=== PATIENT | female | born 2000 | race Caucasian/White ===

== ENCOUNTER 2023-12-31 12:33 | Inpatient (IN) | payer OTHER, SELFPAY ==
[2023-12-31 12:47] VITALS: BP 120/80; PULSE 110; O2SAT 98
--- NOTE | 2023-12-31 12:49 | ED.PSYCH ---
HPI - Psych General Chief Complaint: Psychiatric Symptoms Stated Complaint: SI SECTION 12 Time Seen by Provider: 12/31/23 12:48 Source: patient and EMS Mode of arrival: EMS Limitations: no limitations History of Present Illness HPI Narrative: 23 yo female with history of depression on Prozac, alcohol abuse and dependence, history of suicide attempt in the past with cutting of her neck who presents to the ER via EMS for evaluation of suicidal ideation. She states she has been depressed for the last 5 years with worsening suicidal thoughts. She has thought about running into traffic, cutting her neck, using a belt to hang herself but she has not tried them because she is afraid they will not work all the way. She admits to significant alcohol abuse to cope with her depression. She drinks seltzers and fireball daily. She experiences tremors and anxiety when she doesn't drink. 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 no other drug use. She is in the [employer] and did not seen psychiatric help after her suicide attempt in the past because she did not want to lose her career. She states she can do my job fine but as soon as she gets home she drinks and gets more and more depressed. She does not have a psychiatrist or therapist. No PCP. She is on her Prozac and is almost running out, she had no refills. MD complaint: suicidal ideation and feels depressed Onset (ago): year(s) Duration: getting worse History of same: Yes Relieving factors: none Exacerbating factors: alcohol Context: recent alcohol abuse Associated psychiatric symptoms: depression Associated symptoms: nausea, vomiting and insomnia If self harm: admits thoughts of self harm and has plan Related Data Allergies Allergy/AdvReac Type Severity Reaction Status Date / Time No Known Allergies Allergy Verified 12/31/23 13:16 Review of Systems Review of Systems: Yes all other systems are reviewed and are negative [facility] Social History Social History Alcohol intake: current Alcohol intake frequency: 3 or more drinks per day Alcohol type: beer and hard liquor Smoked in Last 30 Days: No Use of substances other than those prescribed or required for medical reasons: No Patient : No Physical Exam Vital Signs: Vital Signs: Last Vital Signs Temp 98.2 F 12/31/23 13:13 Pulse 81 12/31/23 13:13 Resp 16 12/31/23 13:13 BP 142/85 H 12/31/23 13:13 Pulse Ox 100 12/31/23 13:13 O2 Del Method Room Air 12/31/23 13:13 BMI result Body Mass Index 27.5 Appearance: Alert. Oriented X3. Tearful and yelling out, i want to f*cking kill myself. smells of alcohol. Head: normocephalic, atraumatic. Eyes: Pupils equal, round and reactive to light. ENT: Pharynx normal. No tonsillar swelling or exudate. Neck: Normal inspection. Neck supple. CVS: Normal heart rate and rhythm. Pulses normal. Respiratory: No respiratory distress. Breath sounds normal. Abdomen: Soft and nontender. +BS x4 Skin: Skin warm and dry. Normal skin color. Normal skin turgor. No rashes. Extremities: No lower extremity edema. No joint swelling. Neuro/psych: Oriented X 3. No motor deficit. No sensory deficit. CN II-XII intact. Normal speech and cognition. Under the influence of alcohol. Crying, depressed mood. No AH/VH Course Reevaluation(s) Reevaluation #1: Physician observation started at 14:45. Patient placed in physician observation because patient is awaiting CARE team evaluation for the possible need of inpatient psych admission. At the time observation was started patient's vital signs were stable. Patient is alert and oriented. Neuro exam is non-focal. CV: RRR and lungs are clear. Will continue to monitor. Time: 14:45 Medical Decision Making Medical Decision Making [facility] Narrative: 23 yo female with history of depression, alcohol use disorder, SI in the past presenting with SI and multiple plans. Alcohol level to 257, MCFADDEN negative Patient to be seen by care team for evaluation of suicidal ideation. May require inpatient level of care. Will re-evaluate once clinically sober Differential Diagnosis Differential Diagnoses: The differential diagnosis associated with the presentation includes alcoholism, substance induced mood disorder, acute psychosis, schizophrenia, schizoaffective disorder, PTSD, bipolar disorder, major depression with psychotic features Admission/Observation Consideration of admission/observation: Escalation of care including admission/observation considered Lab Data [facility] Lab Attestation statement: I reviewed the patient's lab results. 12/31/23 13:40 12/31/23 13:40 Labs: Lab Results 12/31/23 Range/Units 13:40 WBC 8.2 (4.8-10.8) X10*3/uL RBC 4.27 (4.20-5.50) X10*6/uL Hgb 14.2 (12.0-16.0) g/dl Hct 40.5 (37.0-47.0) % MCV 94.8 (80.0-98.0) fL MCH 33.3 H (27.0-33.0) pg MCHC 35.1 H (31.0-35.0) g/dl RDW 11.7 (11.0-16.0) % Plt Count 281 (160-400) X10*3/uL MPV 8.7 L (9.4-12.3) fL Immature Gran % (Auto) 0.4 (0.0-0.4) % Neut % (Auto) 68.5 (45-73) % Lymph % (Auto) 26.3 (20-40) % Worth % (Auto) 3.8 (2-11) % Eos % (Auto) 0.4 (0-4) % Baso % (Auto) 0.6 (0-2) % Lymph # (Auto) 2.2 (1.2-4.9) X10*3/uL Worth # (Auto) 0.3 (0.1-1.2) X10*3/uL Eos # (Auto) 0.0 (0.0-0.4) X10*3/uL Baso # (Auto) 0.1 (0.0-0.2) X10*3/uL Abs Immat Gran (auto) 0.03 (0.00-0.03) X10*3/uL Absolute Neuts (auto) 5.7 (2.0-8.3) x10*3/uL Absolute Nucleated RBC 0.000 (0.0-0.012) X10*3/uL Nucleated RBC % (auto) 0.0 (0.0-0.2) /100WBC Sodium 145 (135-145) mmol/L Potassium 3.6 (3.3-5.1) mmol/L Chloride 107 (96-108) mmol/L Carbon Dioxide 26 (22-29) mmol/L Anion Gap 16 (12-20) BUN 9 (9-16) mg/dL Creatinine 0.77 (0.5-1.4) mg/dL Estim Creat Clear Calc 109.0 Estimated GFR > 60 Random Glucose 89 (60-115) mg/dL Calcium 9.0 (8.4-10.2) mg/dL Magnesium 2.3 (1.6-2.6) mg/dL Total Bilirubin 0.3 (0.0-1.0) mg/dL Direct Bilirubin 0.1 (0.0-0.5) mg/dL AST 20 (5-31) U/L ALT 13 (0-31) U/L Alkaline Phosphatase 67 (39-117) U/L Total Protein 7.4 (6.5-8.0) g/dL Albumin 4.5 (3.5-5.0) g/dL Urine Color Yellow Urine Appearance Clear Urine pH 8.0 (5.0-9.0) Ur Specific Jamieson <= 1.005 (1.005-1.025) Urine Protein Negative (Neg-Trace) mg/dL Urine Glucose (UA) Negative (Negative) mg/dL Urine Ketones Negative (Negative) mg/dL Urine Blood Negative (Negative) Urine Nitrite Negative (Negative) Ur Leukocyte Esterase Negative (Negative) Urine Test NEGATIVE (NEGATIVE) Urine Opiates Screen Not Detected (Not Detect) Urine Fentanyl Screen Not Detected (Not Detect) Ur Barbiturates Screen Not Detected (Not Detect) Ur Phencyclidine Scrn Not Detected (Not Detect) Ur Amphetamines Screen Not Detected (Not Detect) U Benzodiazepines Scrn Not Detected (Not Detect) Urine Cocaine Screen Not Detected (Not Detect) U Marijuana (THC) Screen Not Detected (Not Detect) Ethyl Alcohol 257 mg/dL Independent Historian Clinical information obtained from an independent historian. History obtained from or confirmed by: EMS Prescription Management I considered prescription management with: Other (anti psychotic ) Chronic Conditions Patient?s care impacted by: Other (depression, alcohol use disorder) Social Determinants Patient?s care significantly limited by Social Determinants of Health including: Problems related to primary support group Discharge Plan Discharge Clinical Impression: Suicidal ideation, Alcohol use disorder Patient Disposition: Still a Patient Interventions: Winifrede-Suicide Risk Severity Scale Last Done: 12/31/23 13:17
[2023-12-31 13:13] VITALS: BP 142/85; PULSE 81; RESP 16; TEMP 36.8; O2SAT 100; BMI 27.5
[2023-12-31 13:44] LABS: MANUAL DIFF FLAG NO
[2023-12-31 13:46] LABS: Basophils Absolute Auto 0.1 X10*3/uL (0.0-0.2); Basophils Percent Auto 0.6 % (0-2); Eosinophils Percent Auto 0.4 % (0-4); Hematocrit 40.5 % (37.0-47.0); Hemoglobin 14.2 g/dl (12.0-16.0); Imm Gran Abs Auto 0.03 X10*3/uL (0.00-0.03); Imm Gran Pct Auto 0.4 % (0.0-0.4); Lymphocytes Absolute Auto 2.2 X10*3/uL (1.2-4.9); Lymphocytes Percent Auto 26.3 % (20-40); Mean Corpuscular HGB Conc 35.1 g/dl (31.0-35.0); Mean Corpuscular Hemoglobin 33.3 pg (27.0-33.0); Mean Corpuscular Volume 94.8 fL (80.0-98.0); Mean Platelet Volume 8.7 fL (9.4-12.3); Monocytes Absolute Auto 0.3 X10*3/uL (0.1-1.2); Monocytes Percent Auto 3.8 % (2-11); Neutrophils Absolute Auto 5.7 x10*3/uL (2.0-8.3); Neutrophils Percent Auto 68.5 % (45-73); Platelet Count 281 X10*3/uL (160-400); Red Blood Count 4.27 X10*6/uL (4.20-5.50); Red Cell Distribution Width 11.7 % (11.0-16.0); White Blood Count 8.2 X10*3/uL (4.8-10.8)
[2023-12-31 13:50] LABS: Appearance Urine Clear; Color Urine Yellow; Glucose Urine UA Negative (Negative); Leukocyte Esterase Urine Negative (Negative); Nitrite Urine Negative (Negative); Specific Gravity - Urine <= 1.005 (1.005-1.025); Urine Blood Negative (Negative); Urine Ketones Negative (Negative); Urine Protein Negative (Neg-Trace)
[2023-12-31 13:53] LABS: Amphetamine Screen Urine Not Detected (Not Detect); Barbiturates, Urine Not Detected (Not Detect); Benzodiazepines Screen Urine Not Detected (Not Detect); Cannabinoid Screen Urine Not Detected (Not Detect); Cocaine Screen Urine Not Detected (Not Detect); Fentanyl, urine Not Detected (Not Detect); Opiate Screen Urine Not Detected (Not Detect); Phencyclidine Screen Urine Not Detected (Not Detect)
[2023-12-31 13:54] LABS: UPreg QC Valid YES; Urine Pregnancy NEGATIVE (NEGATIVE)
[2023-12-31 14:02] LABS: Alanine Aminotransferase 13 U/L (0-31); Albumin Level 4.5 g/dL (3.5-5.0); Alkaline Phosphatase 67 U/L (39-117); Anion Gap 16 (12-20); Aspartate Amino Transferase 20 U/L (5-31); Bilirubin Direct 0.1 mg/dL (0.0-0.5); Bilirubin Total 0.3 mg/dL (0.0-1.0); Blood Urea Nitrogen 9 mg/dL (9-16); Carbon Dioxide 26 mmol/L (22-29); Chloride 107 mmol/L (96-108); Estimated Glomerular Filt Rate > 60; Ethanol 257 mg/dL; Glucose Random 89 mg/dL (60-115); Magnesium 2.3 mg/dL (1.6-2.6); Potassium 3.6 mmol/L (3.3-5.1); Sodium 145 mmol/L (135-145); Total Protein 7.4 g/dL (6.5-8.0)
[2023-12-31] MEDS: Nicotine 14 MG PATCH.TD24 TRANSDERMA (16:23)
[2023-12-31] MEDS: LORazepam 1 MG TABLET PO (16:23)
[2023-12-31] MEDS: FLUoxetine HCl 20 MG CAPSULE PO (20:36)
[2023-12-31 20:43] VITALS: BP 112/61; PULSE 78; RESP 16; TEMP 37; O2SAT 96
[2024-01-01 05:57] VITALS: BP 124/83; PULSE 57; RESP 15; TEMP 36.8
--- NOTE | 2024-01-01 06:05 | MHC.EDTECH ---
pATIENT SLEPT ALL NIGHT ,PATIENT UP AT 0600 ,VITALS TAKEN AND PATIENT USE THE BATHROOM .
[2024-01-01] MEDS: LORazepam 1 MG TABLET 2 MG PO (06:09)
--- NOTE | 2024-01-01 06:14 | PC.NURSE ---
Patient slept through the night, no distress observed/reported, medication compliant, patient was assessed by care team, disposition is section 12 inpatient bed search. CIWA at 0607 was 9, Ativan 2 mg PO administered/pending effect, no behavior issues, will continue to monitor
[2024-01-01 08:57] LABS: COVID-19 Test Negative (Negative); IDNOW Serial# 152EDE1D
[2024-01-01] MEDS: Nicotine 14 MG PATCH.TD24 TRANSDERMA (08:59)
--- NOTE | 2024-01-01 14:35 | PC.NURSE ---
Report given to accepting unit
[2024-01-01 14:50] VITALS: BP 127/73; PULSE 73; RESP 16; TEMP 37; O2SAT 99
[2024-01-01 16:27] VITALS: BMI 28.7
--- NOTE | 2024-01-01 16:52 | PC.NURSE ---
Pt received the flu vaccine in November 2023.
--- NOTE | 2024-01-01 17:11 | PC.NURSE ---
Ifeoma is a 23 year old female admitted to [facility] at 1445 from the pod on a CV for treatment of unspecified bipolar d/o and alcohol use d/o. Pt was drinking the day prior to admission and woke up and began to continue to drink. Pt then called 911 with SI with a plan to hang herself, cut her neck, or run into traffic. Pt reported I knew I needed help and called crisis. Pt BAL was 257 upon arrival. She is a&o x4 and was cooperative and pleasant during assessment. Pt was cooperative with skin check. Pt reports feeling depressed I'm ready to get help I need medication and a psychiatrist. Pt denies SI and HI at this time. Pt denies AH or VH. No overt psychosis or expressed delusions observed. Pt thought process is linear. Pt reports trouble falling asleep. She reported having recent stressors, [place] country in the last 6 months and she had a divorce and lost her father in the Pt tox screen was negative. Pt has a hx of prior suicide attempts. In 2018 she tried to cut her throat and 2020 tried to hang her self but couldn't figure how to logistically do it. She reports drink beer and fireball 4 or more times a week. Pt reports no medial issues. Covid was negative. Pt is currently on 15 minute checks for safety. Pt is on a CIWA Q4. She last scored a 9,0, and 2. Pt signed a 3-day on 01/01/24.
[2024-01-01 20:00] VITALS: BP 112/67; PULSE 63; RESP 16; TEMP 36.9; O2SAT 98
[2024-01-01] MEDS: hydrOXYzine HCL 25 MG TABLET PO (20:27)
[2024-01-01] MEDS: traZODone HCL 50 MG TABLET PO (20:27)
[2024-01-01] MEDS: FLUoxetine HCl 20 MG CAPSULE PO (20:27)
[2024-01-02 06:00] VITALS: BP 115/68; PULSE 64; RESP 14; TEMP 36.5; O2SAT 99
[2024-01-02] MEDS: Nicotine 21 MG PATCH.TD24 TRANSDERMA (08:26)
[2024-01-02] MEDS: Multivitamin TABLET 1 TAB PO (08:27)
[2024-01-02] MEDS: Folic Acid 1 MG TABLET PO (08:27)
[2024-01-02] MEDS: Thiamine HCL 100 MG TABLET PO (08:27)
[2024-01-02 09:06] LABS: Alanine Aminotransferase 10 U/L (0-31); Albumin Level 4.1 g/dL (3.5-5.0); Alkaline Phosphatase 63 U/L (39-117); Anion Gap 11 (12-20); Aspartate Amino Transferase 15 U/L (5-31); Bilirubin Total 0.5 mg/dL (0.0-1.0); Blood Urea Nitrogen 11 mg/dL (9-16); Calcium 9.3 mg/dL (8.4-10.2); Carbon Dioxide 26 mmol/L (22-29); Chloride 106 mmol/L (96-108); Cholesterol 180 mg/dL (<200); Creatinine Clr Calc Pharmacy 104.6; Estimated Glomerular Filt Rate > 60; Glucose Fasting 94 mg/dL (60-99); HDL Cholesterol 91 mg/dL (>40); LDL Cholesterol Calculated 72 mg/dL (<100); Potassium 3.6 mmol/L (3.3-5.1); Sodium 139 mmol/L (135-145); Total Protein 6.9 g/dL (6.5-8.0); Triglycerides 88 mg/dL (<150)
--- NOTE | 2024-01-02 09:42 | P.HPPS_ITS ---
HPI Date of Service: 01/02/24 Chief Complaint: crisis Sources of Information: patient interviewed, chart reviewed and crisis/core team assessment reviewed HPI Subjective Notes: Hill Warning and Conditional Voluntary Narrative: Patient is a 23 year old female with hx of MDD, PTSD and alcohol use d/o who was brought to ER via EMS on [address] by police d/t suicidal ideation secondary to increased depression and alcohol consumption. Per crisis report, pt was brought in by police on [place] 12[address] d/t suicidal ideation with plan to hand herself, cut her neck or run into traffic. Pt reports drinking daily and had a BAL of 257 on arrival to ER;denies any other substance use. Pt has hx of two self reported suicide attempts; one in 2019 and one in 2020. This is patient's first inpatient psychiatric hospitalization. Pt does not currently have any outpatient psychiatric providers. Pt moved to [place] six months ago for her job; she was taking Prozac while living in [place] but ran out and skipped doses. During admission assessment, pt presents calm and cooperative. Pt reports feeling stressed ; pt stated, I think I hit a breaking point. I was drinking for the past three days. I'm not happy with myself. I feel like I could be better. Sometimes I think it would be better to but I don't want to ; then I get irritated at myself for thinking that way. I only get suicidal when I drink . Pt reports she doesn't know why I drink so much ; she reports stress from her job and not being able to sustain a relationship . Pt stated, I want to stay in the , I just want to find a way to cope with my job . 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 Pt reports hx of taking Prozac with positive effect; pt stated, I used to take Prozac and I was feeling better on it but then I stopped because I was feeling good . Pt was educated regarding medication compliance. Pt denies SI/HI/VH/AH. Past Psychiatric History: Pt reports hx of suicide attempts in 2018 cut throat superficially with broken bottle during argument with ex- and in 2020, tried to hang herself after argument with ex. Hx of psychiatrist and therapist in [place]. 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 Moved to [place] six months ago for her job after living in [place]. Family live in [facility]. Substance History: drink alcohol daily. denies any other substance use. Trauma History: yes Diagnostics Vital Signs (24Hr): Vital Signs - 24 hr 01/01/24 14:50 01/01/24 20:00 01/02/24 06:00 Temperature 98.6 F 98.5 F 97.7 F Pulse Rate 73 63 64 Respiratory Rate 16 16 14 Blood Pressure 127/73 112/67 115/68 Pulse Oximetry 99 98 99 Oxygen Delivery Method Room Air Room Air Room Air BMI result Body Mass Index 28.7 Labs 12/31/23 13:40 01/02/24 08:20 Labs: Laboratory Results - last 48 hr 12/31/23 01/01/24 01/02/24 13:40 08:23 08:20 WBC 8.2 RBC 4.27 Hgb 14.2 Hct 40.5 MCV 94.8 MCH 33.3 H MCHC 35.1 H RDW 11.7 Plt Count 281 MPV 8.7 L Immature Gran % (Auto) 0.4 Neut % (Auto) 68.5 Lymph % (Auto) 26.3 Bowman % (Auto) 3.8 Eos % (Auto) 0.4 Baso % (Auto) 0.6 Lymph # (Auto) 2.2 Bowman # (Auto) 0.3 Eos # (Auto) 0.0 Baso # (Auto) 0.1 Abs Immat Gran (auto) 0.03 Absolute Neuts (auto) 5.7 Absolute Nucleated RBC 0.000 Nucleated RBC % (auto) 0.0 Sodium 145 139 Potassium 3.6 3.6 Chloride 107 106 Carbon Dioxide 26 26 Anion Gap 16 11 L BUN 9 11 Creatinine 0.77 0.82 Estim Creat Clear Calc 109.0 104.6 Estimated GFR > 60 > 60 Random Glucose 89 Fasting Glucose 94 Calcium 9.0 9.3 Magnesium 2.3 Total Bilirubin 0.3 0.5 Direct Bilirubin 0.1 AST 20 15 ALT 13 10 Alkaline Phosphatase 67 63 Total Protein 7.4 6.9 Albumin 4.5 4.1 Triglycerides 88 Cholesterol 180 LDL Cholesterol, Calc 72 HDL Cholesterol 91 Urine Color Yellow Urine Appearance Clear Urine pH 8.0 Ur Specific Loa <= 1.005 Urine Protein Negative Urine Glucose (UA) Negative Urine Ketones Negative Urine Blood Negative Urine Nitrite Negative Ur Leukocyte Esterase Negative Urine Test NEGATIVE Urine Opiates Screen Not Detected Urine Fentanyl Screen Not Detected Ur Barbiturates Screen Not Detected Ur Phencyclidine Scrn Not Detected Ur Amphetamines Screen Not Detected U Benzodiazepines Scrn Not Detected Urine Cocaine Screen Not Detected U Marijuana (THC) Screen Not Detected Ethyl Alcohol 257 COVID-19 (STEVIE) Negative COVID-19 Clin Com See Note Meds/Allergies Meds Home Medications ?Medication ?Instructions ?Recorded ?Confirmed ?Type fluoxetine 20 mg capsule (Prozac) 20 mg PO BEDTIME 12/31/23 12/31/23 History Allergies Allergies Allergy/AdvReac Type Severity Reaction Status Date / Time No Known Allergies Allergy Verified 12/31/23 13:16 Mental Status Exam Mental Status Exam Narrative: Pt is alert and oriented; behavior is cooperative, friendly and calm; dressed in casual attire; mood is described as stressed ; eye contact appropriate; Speech is normal rate, volume and prosody and not pressured; thought process is organized and goal directed; Thought content is on tx; otherwise pertinent to relevant topics and without any delusional content, paranoid ideations or grandiosity; denies SI/HI/VH/AH. Assessment & Plan Assessment & Plan (1) MDD (major depressive disorder), recurrent episode, severe: Status: Acute Code(s): F33.2 - Major depressive disorder, recurrent severe without psychotic features (2) PTSD (post-traumatic stress disorder): Status: Acute Code(s): F43.10 - Post-traumatic stress disorder, unspecified (3) Alcohol use disorder: Status: Acute Code(s): F10.90 - Alcohol use, unspecified, uncomplicated Plan Patient is a 23 year old female with hx of MDD, PTSD and alcohol use d/o who was brought to ER via EMS on [address] 12[address] by police d/t suicidal ideation secondary to increased depression and alcohol consumption. Plan: CV 15 minute safety checks CIWA Start: Prozac 20mg PO daily Referral to outpatient therapist and prescriber Consult to addiction medicine for assistant track and field coach and possibly starting on Neltrexone. Patient educated on: diagnosis, medication risk/benefits, substance abuse and therapeutic strategies Informed Consent: understands Reason for continued inpatient stay Substantial Risk for: med/psych decompensation Statement Statement: I have reviewed the history and physical and performed a pertinent examination on my patient. No changes have occurred unless specified. If the History and Physical was not performed prior to admission, the Hospitalist's service will be consulted for completing the admission physical. Time Spent With Patient Time: Total time managing care of this patient today _60___ minutes.
--- NOTE | 2024-01-02 14:41 | MHC.RECOVRN ---
AUDIT-C Brief Intervention Pt had positive screen for unhealthy alcohol use on admission, subsequently met with t/w to discuss alcohol use and recovery supports/options. Pt voices concern regarding alcohol use and is aware that drinking at unhealthy levels is known to increase risk of alcohol related health problems. Pt reports drinking anything until I get drunk. Pt reports she has been drinking daily for a few months. Pt reports use has increased, prior to a few months ago pt used alcohol on the weekends. Pt states I would have a bad day and say I need a beer or have some type of stress and say I need a beer. Pt does report alcohol use before and after work. 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 Pt unsure if there is a family history of alcohol use, however, suspects mother has AUD. Pt expresses how alcohol use has impacted health, including negative impact on mental health. Discussed risk reduction strategies including drinking below the recommended limit. Provided pt with written resources including information on inpatient and outpatient treatment, LIZANDRO, harm reduction, and recovery coaching. Pt interested in naltrexone, would like to initiate and follow up with the [facility]. Pt provided with t/w contact information if questions or concerns arise. Denies other questions or concerns at this time. Discussed with Judith Squires APRN. Pt has CCC appt on 01/07 at 1PM.
[2024-01-02 19:25] VITALS: BP 118/65; PULSE 64; RESP 16; TEMP 37; O2SAT 98
[2024-01-02] MEDS: traZODone HCL 50 MG TABLET PO (20:15)
[2024-01-02] MEDS: FLUoxetine HCl 20 MG CAPSULE PO (20:15)
[2024-01-02] MEDS: hydrOXYzine HCL 25 MG TABLET PO (20:15)
[2024-01-03 07:00] VITALS: BMI 28.8
[2024-01-03 08:00] VITALS: BP 109/55; PULSE 58; RESP 18; TEMP 36.6; O2SAT 97
--- NOTE | 2024-01-03 08:02 | HO.PSYCHPN ---
Subjective Subjective Date of Service: 01/03/24 Reason For Visit: crisis Subjective Notes: 3 Day Interim History: Reviewed with Dr. Davison. social with peers, attending groups. Pt reports feeling good ; pt stated, I'm feeling a lot better being here and talking to people. I feel like I'm getting help . Pt reports she plans on following up with outpatient providrs. pt denies SI/HI/VH/AH. Pt to be discharged tomorrow on 3 day notice. Medication Compliance: Yes Side effects from medications: No Attending Groups: Yes Review of Systems Constitutional: Reports as per HPI Eyes: Reports as per HPI Reports as per HPI Cardiovascular: Reports as per HPI Respiratory: Reports as per HPI Gastrointestinal: Reports as per HPI Musculoskeletal: Reports as per HPI Skin/Breast: Reports as per HPI Reports as per HPI Psychiatric: Reports as per HPI Endocrine: Reports as per HPI Hematologic/Lymphatic: Reports as per HPI Allergic/Immunologic: Reports as per HPI Mental Status Exam Mental Status Exam Narrative: Pt is alert and oriented; behavior is cooperative, friendly and calm; dressed in casual attire; mood is described as good ; eye contact appropriate; Speech is normal rate, volume and prosody and not pressured; thought process is organized and goal directed; Thought content is on tx; otherwise pertinent to relevant topics and without any delusional content, paranoid ideations or grandiosity; denies SI/HI/VH/AH. Diagnostics Vital Signs (24Hr): Vital Signs - 24 hr 01/02/24 19:25 Temperature 98.6 F Pulse Rate 64 Respiratory Rate 16 Blood Pressure 118/65 Pulse Oximetry 98 Oxygen Delivery Method Room Air BMI result Body Mass Index 28.7 Labs 12/31/23 13:40 01/02/24 08:20 Labs: Laboratory Results - last 48 hr 01/01/24 01/02/24 08:23 08:20 Sodium 139 Potassium 3.6 Chloride 106 Carbon Dioxide 26 Anion Gap 11 L BUN 11 Creatinine 0.82 Estim Creat Clear Calc 104.6 Estimated GFR > 60 Fasting Glucose 94 Calcium 9.3 Total Bilirubin 0.5 AST 15 ALT 10 Alkaline Phosphatase 63 Total Protein 6.9 Albumin 4.1 Triglycerides 88 Cholesterol 180 LDL Cholesterol, Calc 72 HDL Cholesterol 91 COVID-19 (STEVIE) Negative COVID-19 Clin Com See Note Medications Medications Current Medications Acetaminophen (Acetaminophen 325 Mg Tablet) 650 mg PO Q6H PRN PRN Reason: Headache/Pain Mild Scale (1-3) Al Hydroxide/Mg Hydroxide (Magnesium Hydrox/Alum Hydrox 30 Ml Oral.Susp) 30 ml PO Q6H PRN PRN Reason: Heartburn/Nausea Fluoxetine HCl (Fluoxetine Hcl 20 Mg Capsule) 20 mg PO BEDTIME STERLING Last Admin: 01/02/24 20:15 Dose: 20 mg Folic Acid (Folic Acid 1 Mg Tablet) 1 mg PO DAILY [facility] Last Admin: 01/02/24 08:27 Dose: 1 mg Hydroxyzine HCl (Hydroxyzine Hcl 25 Mg Tablet) 25 mg PO Q6H PRN PRN Reason: Anxiety Last Admin: 01/02/24 20:15 Dose: 25 mg Lorazepam (Lorazepam 1 Mg Tablet) 1 mg PO Q4H PRN PRN Reason: CIWA 6-12 Lorazepam (Lorazepam 1 Mg Tablet) 2 mg PO Q4H PRN PRN Reason: CIWA 13 and above Magnesium Hydroxide (Milk Of Magnesia 30 Ml Oral.Susp) 30 ml PO DAILY PRN PRN Reason: Constipation Multivitamins/Vitamin C (Multivitamin Tablet) 1 tab PO DAILY [facility] Last Admin: 01/02/24 08:27 Dose: 1 tab Nicotine (Nicotine 21 Mg Patch.Td24) 21 mg TRANSDERMA DAILY [facility] Last Admin: 01/02/24 08:26 Dose: 21 mg Nicotine Polacrilex (Nicotine Polacrilex 2 Mg Gum) 4 mg BUCCAL Q2H PRN PRN Reason: Nicotine Cravings Thiamine HCl (Thiamine Hcl 100 Mg Tablet) 100 mg PO DAILY [facility] Last Admin: 01/02/24 08:27 Dose: 100 mg Trazodone HCl (Trazodone Hcl 50 Mg Tablet) 50 mg PO BEDTIME MRX1 PRN PRN Reason: Insomnia Last Admin: 01/02/24 20:15 Dose: 50 mg Allergies Allergies Allergy/AdvReac Type Severity Reaction Status Date / Time No Known Allergies Allergy Verified 12/31/23 13:16 Assessment & Plan Assessment & Plan (1) MDD (major depressive disorder), recurrent episode, severe: Status: Acute Code(s): F33.2 - Major depressive disorder, recurrent severe without psychotic features (2) PTSD (post-traumatic stress disorder): Status: Acute Code(s): F43.10 - Post-traumatic stress disorder, unspecified (3) Alcohol use disorder: Status: Acute Code(s): F10.90 - Alcohol use, unspecified, uncomplicated Plan Patient is a 23 year old female with hx of MDD, PTSD and alcohol use d/o who was brought to ER via EMS on [address] by police d/t suicidal ideation secondary to increased depression and alcohol consumption. Plan: CV 15 minute safety checks CIWA Start: Prozac 20mg PO daily Referral to outpatient therapist and prescriber Consult to addiction medicine for girls tennis coach and possibly starting on Neltrexone. 01/02: social with peers, attending groups. Pt reports feeling good ; pt stated, I'm feeling a lot better being here and talking to people. I feel like I'm getting help . Pt reports she plans on following up with outpatient providrs. pt denies SI/HI/VH/AH. Pt to be discharged tomorrow on 3 day notice. Pt plans to follow up at [facility] when discharged regarding resources. Patient educated on: diagnosis, medication risk/benefits, substance abuse and therapeutic strategies Informed Consent: understands Reason for continued inpatient stay Substantial Risk for: stable for discharge Time Spent With Patient Time: Total time managing care of this patient today _20___ minutes.
[2024-01-03] MEDS: Thiamine HCL 100 MG TABLET PO (08:56)
[2024-01-03] MEDS: Multivitamin TABLET 1 TAB PO (08:56)
[2024-01-03] MEDS: Folic Acid 1 MG TABLET PO (08:56)
[2024-01-03] MEDS: Naltrexone HCl 50 MG TABLET 25 MG PO (08:56)
[2024-01-03] MEDS: Nicotine 21 MG PATCH.TD24 TRANSDERMA (08:56)
[2024-01-03 19:15] VITALS: BP 144/82; PULSE 73; RESP 16; TEMP 37; O2SAT 98
[2024-01-03] MEDS: traZODone HCL 50 MG TABLET PO (21:26)
[2024-01-03] MEDS: hydrOXYzine HCL 25 MG TABLET PO (21:26)
[2024-01-03] MEDS: FLUoxetine HCl 20 MG CAPSULE PO (21:26)
[2024-01-04 07:26] VITALS: BP 117/67; PULSE 57; RESP 14; TEMP 36.6; O2SAT 99
[2024-01-04] MEDS: Naltrexone HCl 50 MG TABLET 25 MG PO (08:10)
[2024-01-04] MEDS: Folic Acid 1 MG TABLET PO (08:10)
[2024-01-04] MEDS: Multivitamin TABLET 1 TAB PO (08:10)
[2024-01-04] MEDS: Thiamine HCL 100 MG TABLET PO (08:10)
--- NOTE | 2024-01-04 09:06 | PM.PSYDC ---
DS: Providers Provider Date of Service: 01/04/24 Date of admission: 01/01/24 13:32 Date of discharge: 01/04/24 Primary care physician: Jonh Physician Admitting clinician: Rachel Agarwal Attending physician on admission: Wojciech Davison Consults: 01/01/24 15:38 Addiction Medicine Stat Consulting Provider: Addiction Covering Reason for consultation: Pt drinks alcohol 4x weekly Attending physician on discharge: Wojciech Davison Discharging clinician: Rachel Agarwal DS: Diagnosis Discharge Diagnosis (1) MDD (major depressive disorder), recurrent episode, severe: Status: Acute (2) PTSD (post-traumatic stress disorder): Status: Acute (3) Alcohol use disorder: Status: Acute DS: Medications Discharge Medications Home Medications: Previous Rx's ?Medication ?Instructions ?Recorded fluoxetine 20 mg capsule 20 mg PO BEDTIME 30 days #30 caps 01/03/24 hydroxyzine HCl 25 mg tablet 25 mg PO BID PRN Anxiety 30 days 01/03/24 #60 tabs naltrexone 50 mg tablet 25 mg (1/2 x 50 mg) PO DAILY 30 01/03/24 days #15 tabs Mental Status Exam Mental Status Exam Narrative: Pt is alert and oriented; behavior is cooperative, friendly and calm; dressed in casual attire; mood is described as good ; eye contact appropriate; Speech is normal rate, volume and prosody and not pressured; thought process is organized and goal directed; Thought content is on tx; otherwise pertinent to relevant topics and without any delusional content, paranoid ideations or grandiosity; denies SI/HI/VH/AH. Data Data Completed and Pending Completed studies during hospitalization [Text1]: 12/31/23 01/01/24 01/02/24 13:40 08:23 08:20 WBC 8.2 RBC 4.27 Hgb 14.2 Hct 40.5 MCV 94.8 MCH 33.3 H MCHC 35.1 H RDW 11.7 Plt Count 281 MPV 8.7 L Immature Gran % (Auto) 0.4 Neut % (Auto) 68.5 Lymph % (Auto) 26.3 Ralls % (Auto) 3.8 Eos % (Auto) 0.4 Baso % (Auto) 0.6 Lymph # (Auto) 2.2 Ralls # (Auto) 0.3 Eos # (Auto) 0.0 Baso # (Auto) 0.1 Abs Immat Gran (auto) 0.03 Absolute Neuts (auto) 5.7 Absolute Nucleated RBC 0.000 Nucleated RBC % (auto) 0.0 Sodium 145 139 Potassium 3.6 3.6 Chloride 107 106 Carbon Dioxide 26 26 Anion Gap 16 11 L BUN 9 11 Creatinine 0.77 0.82 Estim Creat Clear Calc 109.0 104.6 Estimated GFR > 60 > 60 Random Glucose 89 Fasting Glucose 94 Calcium 9.0 9.3 Magnesium 2.3 Total Bilirubin 0.3 0.5 Direct Bilirubin 0.1 AST 20 15 ALT 13 10 Alkaline Phosphatase 67 63 Total Protein 7.4 6.9 Albumin 4.5 4.1 Triglycerides 88 Cholesterol 180 LDL Cholesterol, Calc 72 HDL Cholesterol 91 Urine Color Yellow Urine Appearance Clear Urine pH 8.0 Ur Specific [place] <= 1.005 Urine Protein Negative Urine Glucose (UA) Negative Urine Ketones Negative Urine Blood Negative Urine Nitrite Negative Ur Leukocyte Esterase Negative Urine Test NEGATIVE Urine Opiates Screen Not Detected Urine Fentanyl Screen Not Detected Ur Barbiturates Screen Not Detected Ur Phencyclidine Scrn Not Detected Ur Amphetamines Screen Not Detected U Benzodiazepines Scrn Not Detected Urine Cocaine Screen Not Detected U Marijuana (THC) Screen Not Detected Ethyl Alcohol 257 COVID-19 (STEVIE) Negative COVID-19 Clin Com See Note DS: Summary Hospital Course Hospital Course: Patient is a 23 year old female with hx of MDD, PTSD and alcohol use d/o who was brought to ER via [place] [address] [place] police d/t suicidal ideation secondary to increased depression and alcohol consumption. Per crisis report, pt was brought in [place] police [place] [address] d/t suicidal ideation with plan to hand herself, cut her neck or run into traffic. Pt reports drinking daily and had a BAL of 257 on arrival to ER;denies any other substance use. Pt has hx of two self reported suicide attempts; one in 2019 and one in 2020. This is patient's first inpatient psychiatric hospitalization. Pt does not currently have any outpatient psychiatric providers. Pt moved to [place] six months ago for her job; she was taking Prozac while living in [place] but ran out and skipped doses. During admission assessment, pt presents calm and cooperative. Pt reports feeling stressed ; pt stated, I think I hit a breaking point. I was drinking for the past three days. I'm not happy with myself. I feel like I could be better. Sometimes I think it would be better to but I don't want to ; then I get irritated at myself for thinking that way. I only get suicidal when I drink . Pt reports she doesn't know why I drink so much ; she reports stress from her job and not being able to sustain a relationship . Pt stated, I want to stay in the , I just want to find a way to cope with my job . Pt reports she has previously been able to remain sober for nine months; she reports interest in speaking with addiction medication and obtaining a wrestling coach and possibly starting on Naltrexone. Pt reports hx of taking Prozac with positive effect; pt stated, I used to take Prozac and I was feeling better on it but then I stopped because I was feeling good . Pt was educated regarding medication compliance. Pt denies SI/HI/VH/AH. During hospital course, CV 15 minute safety checks CIWA Start: Prozac 20mg PO daily Referral to outpatient therapist and prescriber Consult to addiction medicine for wrestling coach and possibly starting on Neltrexone. social with peers, attending groups. Pt reports feeling good ; pt stated, I'm feeling a lot better being here and talking to people. I feel like I'm getting help . Pt reports she plans on following up with outpatient providrs. pt denies SI/HI/VH/AH. Pt to be discharged on 3 day notice. Pt plans to follow up at [facility] when discharged regarding resources. Pt reports feeling good and ready for discharge ; pt denies SI/HI/VH/AH. Time spent discussing smoking cessation with patient: 3 to 10 minutes Status at Discharge Cognitive/behavioral status at discharge: Patient was interviewed prior to discharge and found to be fully oriented and without SI or HI. Patient has insight and demonstrates good judgment in terms of wanting to pursue treatment. Patient has a safety plan that includes presenting to the closest ER or calling 911 if feeling unsafe. Functional status at discharge: independent ambulation Overall status at discharge: patient is back to baseline Time Spent with Patient Time attestation: Total time managing care of this patient today _30___ minutes. Time spent: Less than 30 minutes Discharge Plan Discharge Anticipated Discharge Date/Time: 01/04/24 10:45 Patient Disposition: Home, Self-Care Discharge Diagnosis: MDD, PTSD, Alcohol use d/o Referrals: [facility] ([facility]) [Other] - 01/08/24 1:00 pm (IN OFFICE APPOINTMENT) Therapy & Psychiatry [Other] - 1 Week (*Please present to the clinic Sunday through Sunday during the hours of 10am and 12p as a walk in to obtain outpatient mental health providers*) Therapy & Psychiatry [Other] - 1 Week (*[facility] to [facility] ) Magalie [facility]barra (Insurance) [Other] - 1 Week (*Please call your insurance company and they will guide you through the process of obtaining outpatient mental health treatment. ) [facility] [Provider Group] - 1 Week Physician,None [Primary Care Provider] - 1 Week Discharge Medications: New fluoxetine 20 mg Capsule 20 mg PO BEDTIME 30 Days Qty: 30 0RF naltrexone 50 mg Tablet 25 mg PO DAILY 30 Days Qty: 15 0RF hydroxyzine HCl 25 mg Tablet 25 mg PO BID PRN (Reason: Anxiety) 30 Days Qty: 60 0RF Discontinued fluoxetine [Prozac] 20 mg capsule 20 mg PO BEDTIME Discharge Orders: Discharge Order (Routine); Ordered 01/04/24 Ordered By: Rachel Agarwal Diet: Regular diet Activity on Discharge: As tolerated Stand Alone Forms: Patient Portal Discharge page, Community Support Print Language: Venezuelan Care Plan Goals: Maintain mood and safe behaviors Take medications as prescribed Continue to pursue sobriety Practice coping skills Continue with outpatient providers and reach out to them as needed Health Concerns: Mood stability and behaviors Sobriety Plan of Treatment: Follow up with your PCP, psychiatric provider and other outpatient providers regarding above concerns Take medications as prescribed Assessment: Patient was interviewed prior to discharge and found to be fully oriented and without SI or HI. Patient has insight and demonstrates good judgment in terms of wanting to pursue treatment. Patient has a safety plan that includes presenting to the closest ER or calling 911 if feeling unsafe. Discharge Date/Time: 01/04/24 10:50
== END 2024-01-04 10:50 | disposition home or self-care (01) | DRG 885 ==
LOC: HO.ED 15:32 → HO.PADLT16 01-01 13:34
PROVIDERS: Emergency Medicine; Physician Assistant; Admitting Provider Registered Nurse; Emergency Provider Emergency Medicine; Responsible Provider Registered Nurse; Visit Provider Psychiatry & Neurology Psychiatry
DX: F33.2 Major depressive disorder, recurrent severe without psychotic features (principal); R45.851 Suicidal ideations; F17.210 Nicotine dependence, cigarettes, uncomplicated; F43.10 Post-traumatic stress disorder, unspecified; F10.20 Alcohol dependence, uncomplicated; Z71.6 Tobacco abuse counseling; Y90.8 Blood alcohol level of 240 mg/100 ml or more; Z91.51 Personal history of suicidal behavior; Z20.822 Contact with and (suspected) exposure to COVID-19; Z79.899 Other long term (current) drug therapy
CPT/HCPCS: 36415; 80048; 80053; 80061; 80076; 80307; 81003; 81025; 83735; 85025; 87635; 99284; S9485

== ENCOUNTER → 2024-01-01 13:32 | Outpatient (BNV) | payer OTHER, SELFPAY | PROVIDERS: Admitting Provider Registered Nurse; Emergency Provider Emergency Medicine; Responsible Provider Registered Nurse; Visit Provider Registered Nurse | DX: F33.2 Major depressive disorder, recurrent severe without psychotic features (principal); F43.11 Post-traumatic stress disorder, acute; F10.90 Alcohol use, unspecified, uncomplicated | CPT/HCPCS: 90792; 99231; 99238 ==

== ENCOUNTER 2024-01-14 12:52 | Outpatient (AMB) | payer OTHER, SELFPAY ==
[2024-01-14 13:47] VITALS: BP 110/60; PULSE 80; O2SAT 98
--- NOTE | 2024-01-14 13:47 | MHC.AM.SUB ---
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 [employer] She is stably housed with stable transportation She moved to [place] from [place] 6 [place] ago She states she chose to move out to [place] to be closer to her family FAmily lives in [place], sister lives out in [place] She feels as though her family and coworkers are a good support system for her She reports she vapes nicotine, has vaped x 7 yrs daily Denies any other substance use hx Alcohol use increased when she moved to [place] She reports drinking in binge-like patterns Prior to hospitalization she had been bingeing x 3-4 days She reports drinking both beer and hard liquor, would buy a 12 pack of beer, and a sleeve of fireball and that would last her about 2 days No hx of seeking substance use tx She has no providers in [place] yet Had a therapist and psych prescriber out in [place] Recent hospitalization was firstg psych hospitalization [facility] Takes 20mg prozac daily, 50mg naltrexone, and 25mg hydroxyzine BID Reports since starting the meds she has been having vivid dreams Her tx goal is to drink socially and to have control over her alcohol intake Does not feels she had a problem with alcohol prior to moving to [facility] Social History Household Members: None Housing: Apartment Do you presently have visiting nurse or other home services: No Alcohol intake: current Alcohol intake frequency: 3 or more drinks per day Alcohol type: beer and hard liquor Patient Tobacco Use Status: Current everyday Tobacco user e-Cigarette/Vaping Use: Currently Using Second Hand Smoke Exposure: No service: Yes (Active [facility]) Sexual orientation: Straight/Heterosexual Review of Systems Const Reports as per HPI Physical Exam Const General: cooperative and no acute distress Resp Effort & Inspection: normal respiratory effort and able to speak in complete sentences Psych Appearance: grossly normal Mental Status: mental status grossly normal Speech and movement: Normal speech and movement present Affect: normal affect Attitude: cooperative Thought process: Normal thought process present Assessment & Plan Assessment & Plan (1) Alcohol use disorder: Code(s): F10.90 - Alcohol use, unspecified, uncomplicated Category: Medical Plan: -Continue naltrexone. Discussed with pt increasing daily dose to 50mg if she feels the 25mg is sub-therapeutic -Provided her with recovery collector information, she is to think about if she would like a referral, presently is unsure. -Follow up 3 weeks Orders: Referrals Counseling Referral F10.90 - Alcohol use, unspecified, uncomplicated, F33.2 - Major depressive disorder, recurrent severe without psychotic features, F43.10 - Post-traumatic stress disorder, unspecified Medications: Changed From naltrexone 25 mg (1/2 x 50 mg) PO DAILY 30 days 15 tabs 0RF To naltrexone 50 mg PO DAILY 30 tabs 0RF 30 days
== END 2024-01-14 13:35 | disposition home or self-care (01) ==
PROVIDERS: Visit Provider Nurse Practitioner Family
DX: F10.90 Alcohol use, unspecified, uncomplicated (principal)
CPT/HCPCS: 99204

== ENCOUNTER → 2024-01-14 12:52 | Outpatient (BNVA) | payer OTHER, SELFPAY | PROVIDERS: Visit Provider Nurse Practitioner Family | DX: F10.90 Alcohol use, unspecified, uncomplicated (principal); F33.2 Major depressive disorder, recurrent severe without psychotic features; F43.10 Post-traumatic stress disorder, unspecified | CPT/HCPCS: 99202 ==

== ENCOUNTER 2024-02-18 09:01 | Outpatient (AMB) | payer OTHER, SELFPAY ==
--- NOTE | 2024-02-18 09:06 | A.OFFPC_ITS ---
Vital Signs 02/18/24 09:07 Height 5 ft 2 in Weight 172 lb BMI 31.5 BP 112/74 Blood Pressure Location Lt brachial Position Sitting Intake Visit Reasons: NPV/ requesting PHY Rock Crusher Required: No Accompanied by: Self / Same As Patient Allergies No Known Allergies Allergy (Verified 02/18/24 09:17) Medication List - Last Reconciled 02/18/24 by Breanna Raymond MD fluoxetine 20 mg PO BEDTIME 30 days hydroxyzine HCl 25 mg PO BID PRN 30 days naltrexone 50 mg PO DAILY 30 days Tobacco use date assessed: 02/18/24 Dental Screening Dental Screen Date: 02/18/24 Did you have a dental visit in the last 12 months?: Yes Did you have a dental problem in the last 6 months where you did not have access to dental care?: No Was dental information given to patient?: Patient has dentist HPI HPI Comments History of Present Illness Details This is a 23-year-old female with mild major depression that comes for her physical exam as a new patient. She was hospitalized at psychiatric unit due to severe depression, PTSD and alcohol use disorder. Doing well on fluoxetine. Has gain weight and I will decrease fluoxetine to 10 mg once a day for 1 week and then discontinue it. Patient will restart bupropion after discontinuing fluoxetine. Alcohol use disorder stable with naltrexone. Last Pap smear was 2023 and had colposcopy after abnormal Pap smear which colposcopy was normal. No chest pain or shortness on breath. [facility] Medical History (Updated 02/18/24 @ 09:21 by Breanna Raymond MD) Suicidal ideation MDD (major depressive disorder), recurrent episode, severe Surgical History No pertinent past surgical history Family History Mother Hypertension Father Hypertension Diabetes Social History Household Members: None Housing: Apartment Do you presently have visiting nurse or other home services: No Alcohol intake: former Patient Tobacco Use Status: Never used Tobacco e-Cigarette/Vaping Use: Currently Using Second Hand Smoke Exposure: No service: Yes (Active [employer]) Current occupational status: employed Current occupational exposures/hazards: No Sexual orientation: Straight/Heterosexual Cognitive needs: No Hearing needs: No Vision needs: No Questionnaire PHQ-9 Over the last 2 weeks, how often have you been bothered by any of the following problems? 1. Little interest or pleasure in doing things: not at all 2. Feeling down, depressed, or hopeless: several days 3. Trouble falling or staying asleep, or sleeping too much: not at all 4. Feeling tired or having little energy: not at all 5. Poor appetite or overeating: not at all 6. Feeling bad about yourself - or that you are a failure or have let yourself or your family down: not at all 7. Trouble concentrating on things, such as reading the newspaper or watching television: not at all 8. Moving or speaking so slowly that other people could have noticed. Or the opposite - being so fidgety or restless that you have been moving around a lot more than usual: not at all 9. Thoughts that you would be better off or of hurting yourself in some way: not at all Total score: 1 Depression Screening Interpretation: Positive Depression Screening Follow-up: Existing condition, In treatment and Follow-up Visit Requested Depression Screening Done: Yes 96115 - PHQ-9 Billing: Yes Source: Developed by Drs. Iker Soliman, Zulema Christina, Harvey Sorto and colleagues, with an educational angela from [employer]. Thrive Questionnaire Date Thrive assessed: 02/18/24 I am a: Patient What is your living situation today?: I have a steady place to live Within the past 12 months, did the food you bought not last and you didn't have the money to get more?: Never true Within the past 12 months, did you worry whether your food would run out before you got money to buy more?: Never true Do you have trouble paying for medicines?: No Do you have trouble getting transportation to medical appointments?: No Do you have trouble paying your heating and electricity bill?: No Do you have trouble taking care of your child, family member or friend?: No Do you have trouble with day-to-day activities such as bathing, preparing meals, shopping, managing finances, etc.?: No Are you currently unemployed and looking for a job?: No Are you interested in more education?: No Please select the resources that you would like help with: None Currently or been in a relationship where the following occur: no concerns reported THRIVE Score: 0 AUDIT C Alcohol Use Questionnaire (AUDIT-C) 1. How often do you have a drink containing alcohol?: Never Total Score: 0 Score Reviewed/Action Taken: No LANDON-7 AMB Questionnaire LANDON-7 Date LANDON - 7 assessed: 02/18/24 Feeling nervous, anxious, or on edge: 0 = Not at all Not being able to stop or control worryin = Not at all Worrying too much about different things: 0 = Not at all Trouble relaxin = Not at all Being so restless that it is hard to sit still: 0 = Not at all Becoming easily annoyed or irritable: 0 = Not at all Feeling afraid as if something awful might happen: 0 = Not at all Total LANDON-7 score (0-4 normal; 5-9 mild; 10-14 moderate; 15-21 severe): 0 Source: Developed by Drs. Iker Soliman, Zulema Christina, Harvey Sorto and colleagues, with an educational angela from [employer]. LANDON-7 Assessment Billing LANDON-7 Assessment Tool: LANDON-7 Assessment 65768 Review of Systems Const All systems reviewed & are unremarkable except as noted in HPI and below Card Denies chest pain at rest, Denies chest pain with activity, Denies edema, Denies irregular heart rhythm, Denies claudication, Denies dyspnea, Denies dyspnea on exertion, Denies orthopnea, Denies paroxysmal nocturnal dyspnea and Denies slow heart rate Resp Denies cough, Denies dyspnea and Denies dyspnea on exertion Neuro Denies behavioral changes, Denies confusion and Denies lack of coordination Psych Denies behavioral changes and Denies confusion Physical exam (Primary Care) Vital Signs: Last Vital Signs BP 112/74 02/18/24 09:07 BMI result Body Mass Index 31.5 Tobacco/Smoking Status: Tobacco use Status Tobacco use date assessed 02/18/24 02/18/24 09:12 Patient Tobacco Use Status Never used Tobacco 02/18/24 09:12 Tobacco use type 02/18/24 09:12 e-Cigarette/Vaping Use Currently Using 02/18/24 09:12 PHQ-9: PHQ-9 Score PHQ-9: Total score 0 02/18/24 09:31 Depression Screening Interpretation: Positive Depression Screening Follow-up: Existing condition, In treatment and Follow-up Visit Requested Thrive Assessment: Date of Thrive Assessment Date Thrive assessed 02/18/24 02/18/24 09:12 Currently or been in a relationship where the following occur: no concerns reported Const General: No confusion Orientation/consciousness: patient oriented x3 and No confusion HENMT Head: Yes normal to inspection, Yes normocephalic and Yes atraumatic Ears: external ears normal Eyes General: appearance normal, both eyes and all related structures Eyelids: Yes eyelids normal Conjunctivae: conjunctivae normal Neck Neck: Yes normal visual inspection and Yes supple Resp Effort & Inspection: normal respiratory effort Auscultation: clear to auscultation bilaterally Cardio Jugular venous distension: no JVD Rate: regular rate Rhythm: regular rhythm Heart sounds: S1 normal heart sound present and S2 normal heart sound present GI Inspection: Yes normal to inspection Palpation (GI): Soft to palpation and nontender Auscultation: normal bowel sounds Skin General skin exam: no rashes or lesions noted Neuro General: patient oriented x3, no focal motor deficits and No confusion Extrem General: Yes full ROM Psych Appearance: grossly normal Assessment and Plan Assessment & Plan (1) Physical exam: Code(s): Z00.00 - Encounter for general adult medical examination without abnormal findings Plan: Repeat in a year. (2) Mild major depression: Code(s): F32.0 - Major depressive disorder, single episode, mild Plan: Decrease fluoxetine from 20 mg to 10 mg for 1 week and start bupropion. Medications: New fluoxetine 10 mg PO DAILY 7 caps 0RF 7 days bupropion HCl XL 150 mg PO QAM 90 tabs 1RF 90 days F32.0 - Major depressive disorder, single episode, mild Refilled hydroxyzine HCl 25 mg PO BID PRN 60 tabs 0RF Anxiety 30 days naltrexone 50 mg PO DAILY 30 tabs 0RF 30 days Discontinued fluoxetine Discontinued Reason: Patient Completed Course 20 mg PO BEDTIME 30 days 30 caps 0RF Coding Level of Care Code New Pt Prev Care 18-39yr([id number] Diagnoses Physical exam Z00.00 Mild major depression F32.0 Additional Codes LANDNO-7 Assessment Billing - LANDON-7 Assessment Tool: LANDON-7 Assessment 40715 ([id number]) Time Spent (min) 33
[2024-02-18 09:07] VITALS: BP 112/74; BMI 31.5
== END 2024-02-18 09:43 | disposition home or self-care (01) ==
PROVIDERS: Visit Provider Internal Medicine
DX: Z00.00 Encounter for general adult medical examination without abnormal findings (principal); F32.0 Major depressive disorder, single episode, mild; F10.90 Alcohol use, unspecified, uncomplicated
CPT/HCPCS: 96127; 99385

== ENCOUNTER 2024-02-18 13:31 | Outpatient (AMB) | payer OTHER, SELFPAY ==
[2024-02-18 13:45] VITALS: BP 120/80; PULSE 87; RESP 14; O2SAT 98
--- NOTE | 2024-02-18 13:45 | A.OFFVISCC_ITS ---
Vital Signs 02/18/24 13:45 BP 120/80 Blood Pressure Location Rt brachial Position Sitting Respiration 14 Pulse 87 Pulse Source Pulse Oximeter Pulse Oximetry (%) 98 Intake Visit Reasons: MAT visit Allergies No Known Allergies Allergy (Verified 02/18/24 09:17) HPI HPI MAT visit: Details: Patient presents for AUD treatment and follow up States she has been doing well, has been taking the naltrexone and has been finding it to be effective Has only been drinking socially, and when she drinks has been limiting herself to one alcoholic beverage She was seen today by PCP who is cross tapering her from prozac to wellbutrin She has been feeling better physically, states things are looking up No concerns today HPI Comments Details: Patient presents for MAT visit [facility] Medical History (Updated 02/18/24 @ 09:21 by Breanna Raymond MD) Suicidal ideation MDD (major depressive disorder), recurrent episode, severe Surgical History No pertinent past surgical history Family History Mother Hypertension Father Hypertension Diabetes Social History Household Members: None Housing: Apartment Do you presently have visiting nurse or other home services: No Alcohol intake: former Patient Tobacco Use Status: Never used Tobacco e-Cigarette/Vaping Use: Currently Using Second Hand Smoke Exposure: No service: Yes ([employer]) Current occupational status: employed Current occupational exposures/hazards: No Sexual orientation: Straight/Heterosexual Cognitive needs: No Hearing needs: No Vision needs: No Review of Systems Const Reports as per HPI Physical Exam Vital Signs: Last Vital Signs Pulse 87 02/18/24 13:45 Resp 14 02/18/24 13:45 BP 120/80 02/18/24 13:45 Pulse Ox 98 02/18/24 13:45 Const General: cooperative and no acute distress Resp Effort & Inspection: normal respiratory effort and able to speak in complete sentences Psych Appearance: grossly normal Mental Status: mental status grossly normal Speech and movement: Normal speech and movement present Affect: normal affect Attitude: cooperative Thought process: Normal thought process present Assessment & Plan Assessment & Plan (1) Alcohol use disorder: Code(s): F10.90 - Alcohol use, unspecified, uncomplicated Category: Medical Plan: -Continue naltrexone -Follow up 1 month, sooner as needed
== END 2024-02-18 14:04 | disposition home or self-care (01) ==
PROVIDERS: Visit Provider Nurse Practitioner Family
DX: F10.90 Alcohol use, unspecified, uncomplicated (principal)
CPT/HCPCS: 99213

== ENCOUNTER → 2024-02-18 13:31 | Outpatient (BNVA) | payer OTHER, SELFPAY | PROVIDERS: Visit Provider Nurse Practitioner Family | DX: F10.20 Alcohol dependence, uncomplicated (principal); Z79.899 Other long term (current) drug therapy | CPT/HCPCS: 99212 ==

== ENCOUNTER 2024-05-26 13:31 | Outpatient (AMB) | payer OTHER, SELFPAY ==
--- NOTE | 2024-05-26 13:44 | MHC.AM.SUB ---
Intake Visit Reasons: MAT Office Allergies No Known Allergies Allergy (Verified 02/18/24 09:17) HPI HPI MAT Office: Details: Patient presents for follow up Last appt in February ran out of Hydroxyzine 2 weeks ago Wellbutrin 150mg daily started by PCP Reports drinking has decreased--3x/week and about 4-5 high noons each time somewhat guarded when discussing her alcohol use Tearful at times Discussed strategies to plan for what she would like her night to look like--including how she wants to feel the next morning Discussed therapy --due to her insurance ([employer]) finding providers is challenging. [facility] Medical History (Updated 05/21/24 @ 20:05 by Breanna Raymond MD) Suicidal ideation MDD (major depressive disorder), recurrent episode, severe Surgical History No pertinent past surgical history Family History Mother Hypertension Father Hypertension Diabetes Social History Household Members: None Housing: Apartment Do you presently have visiting nurse or other home services: No Alcohol intake: former Patient Tobacco Use Status: Never used Tobacco e-Cigarette/Vaping Use: Currently Using Second Hand Smoke Exposure: No service: Yes ([employer]) Current occupational status: employed Current occupational exposures/hazards: No Sexual orientation: Straight/Heterosexual Cognitive needs: No Hearing needs: No Vision needs: No Review of Systems Const Reports as per HPI and Reports difficulty sleeping (without hydroxyzine ) Physical Exam Const General: cooperative, healthy appearing, anxious and well groomed Nutritional Appearance: average body habitus Orientation/consciousness: patient oriented x3 Limitations: no limitations Neuro General: patient oriented x3 Assessment & Plan Assessment & Plan (1) Alcohol use disorder: Code(s): F10.90 - Alcohol use, unspecified, uncomplicated Category: Medical Plan: encouraged to consider restarting naltrexone refilled hydroxyzine provided with printout of providers who take tri care in this area follow up in office 6 weeks Medications: Refilled hydroxyzine HCl 25 mg PO BID 30 days PRN 60 tabs 3RF Anxiety naltrexone 50 mg PO DAILY 30 days 30 tabs 3RF Discontinued fluoxetine Discontinued Reason: Patient Completed Course 10 mg PO DAILY 7 days 7 caps 0RF
== END 2024-05-26 14:12 | disposition home or self-care (01) ==
PROVIDERS: Visit Provider Nurse Practitioner Psychiatric/Mental Health
DX: F10.90 Alcohol use, unspecified, uncomplicated (principal)
CPT/HCPCS: 99214

== ENCOUNTER → 2024-05-26 13:31 | Outpatient (BNVA) | payer OTHER, SELFPAY | PROVIDERS: Visit Provider Nurse Practitioner Psychiatric/Mental Health | DX: F10.90 Alcohol use, unspecified, uncomplicated (principal) | CPT/HCPCS: 99212 ==

== ENCOUNTER 2025-02-23 09:28 | Outpatient (AMB) | payer OTHER, SELFPAY ==
--- NOTE | 2025-02-23 09:32 | MHC.PC.OV ---
Vital Signs 02/23/25 09:36 Height 5 ft 2 in Weight 171 lb BMI 31.3 BP 110/80 Blood Pressure Location Lt brachial Position Sitting Intake Visit Reasons: Annual exam Intake Note: Patient here for an annual physical exam [employer] Required: No Accompanied by: Self / Same As Patient Allergies No Known Allergies Allergy (Verified 02/23/25 09:46) Medication List - Last Reconciled 02/23/25 by Breanna Raymond MD bupropion HCl XL 150 mg PO QAM 90 days hydroxyzine HCl 25 mg PO BID PRN 30 days naltrexone 50 mg PO DAILY 30 days Tobacco use date assessed: 02/23/25 Dental Screening Dental Screen Date: 02/23/25 Did you have a dental visit in the last 12 months?: Yes Did you have a dental problem in the last 6 months where you did not have access to dental care?: No Was dental information given to patient?: Patient has dentist HPI HPI Comments History of Present Illness Details The patient is a 24-year-old female presenting for a comprehensive physical examination. Notably, she seeks a Tdap booster given an unspecified vaccination history. She receives treatment for mild depressive disorder with Bupropion and Hydroxyzine, both of which contribute to drowsiness. The patient manages Naltrexone for fluctuating alcohol use, noting significant adverse effects when combined with alcohol. In 2023 she dealt with an abnormal Pap smear but achieved normalcy post-Colposcopy. 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 Back issues, manifested as stress-related knots, and menstrual changes have also emerged. She manages familial medical predispositions to diabetes and hypertension. Additionally, past Borderline Personality Disorder diagnosis prompts interest in therapy, citing previous positive counseling outcomes but encounters referral barriers with current insurance. - Administered Tdap vaccine during the visit. - Pap smear evaluated in 2023, followed by a normal Colposcopy. - Planning for Nexplanon replacement by September 2024. - Encouragement to continue low-calorie beverage choices to manage weight. - Referral to [facility] [employer], psychiatry, and counseling discussed. [facility] Medical History (Updated 02/23/25 @ 10:04 by Breanna Raymond MD) Suicidal ideation MDD (major depressive disorder), recurrent episode, severe Surgical History No pertinent past surgical history Family History Mother Hypertension Father Hypertension Diabetes Social History Household Members: None Housing: Apartment Do you presently have visiting nurse or other home services: No Alcohol intake: former Patient Tobacco Use Status: Never used Tobacco e-Cigarette/Vaping Use: Currently Using Second Hand Smoke Exposure: No service: Yes ([employer]) Current occupational status: employed Current occupational exposures/hazards: No Sexual orientation: Straight/Heterosexual Cognitive needs: No Hearing needs: No Vision needs: No Questionnaire PHQ-9 Over the last 2 weeks, how often have you been bothered by any of the following problems? 1. Little interest or pleasure in doing things: several days 2. Feeling down, depressed, or hopeless: not at all 3. Trouble falling or staying asleep, or sleeping too much: not at all 4. Feeling tired or having little energy: several days 5. Poor appetite or overeating: several days 6. Feeling bad about yourself - or that you are a failure or have let yourself or your family down: several days 7. Trouble concentrating on things, such as reading the newspaper or watching television: several days 8. Moving or speaking so slowly that other people could have noticed. Or the opposite - being so fidgety or restless that you have been moving around a lot more than usual: several days 9. Thoughts that you would be better off or of hurting yourself in some way: not at all Total score: 6 Depression Screening Interpretation: Positive Depression Screening Follow-up: Existing condition, In treatment, Community Mental Health Worker F/U and Follow-up Visit Requested Depression Screening Done: Yes 15585 - PHQ-9 Billing: Yes Source: Developed by Drs. Iker Soliman, Zulema Christina, Harvey Sorto and colleagues, with an educational angela from [employer]. Thrive Questionnaire Date Thrive assessed: 02/16/25 I am a: Patient What is your living situation today?: I have a steady place to live Within the past 12 months, did the food you bought not last and you didn't have the money to get more?: Never true Within the past 12 months, did you worry whether your food would run out before you got money to buy more?: Never true Do you have trouble paying for medicines?: No Do you have trouble getting transportation to medical appointments?: No Do you have trouble paying your heating and electricity bill?: No Do you have trouble taking care of your child, family member or friend?: No Do you have trouble with day-to-day activities such as bathing, preparing meals, shopping, managing finances, etc.?: No Are you currently unemployed and looking for a job?: No Are you interested in more education?: No Please select the resources that you would like help with: None Currently or been in a relationship where the following occur: No concerns reported THRIVE Score: 0 AUDIT C Alcohol Use Questionnaire (AUDIT-C) 1. How often do you have a drink containing alcohol?: Monthly or less 2. How many drinks containing alcohol do you have on a typical day when you are drinking?: 1 or 2 3. How often do you have six or more drinks on one occasion?: Never Total Score: 1 Score Reviewed/Action Taken: No LANDON-7 AMB Questionnaire LANDON-7 Date LANDON - 7 assessed: 02/23/25 Feeling nervous, anxious, or on edge: 1 = Several days Not being able to stop or control worryin = Several days Worrying too much about different things: 1 = Several days Trouble relaxin = Not at all Being so restless that it is hard to sit still: 0 = Not at all Becoming easily annoyed or irritable: 1 = Several days Feeling afraid as if something awful might happen: 0 = Not at all Total LANDON-7 score (0-4 normal; 5-9 mild; 10-14 moderate; 15-21 severe): 4 Source: Developed by Drs. Iker Soliman, Zulema Christina, Harvey Sorto and colleagues, with an educational angela from [employer]. LANDON-7 Assessment Billing LANDON-7 Assessment Tool: LANDON-7 Assessment 88513 Review of Systems Const All systems reviewed & are unremarkable except as noted in HPI and below Card Denies chest pain at rest, Denies chest pain with activity, Denies edema, Denies irregular heart rhythm, Denies claudication, Denies dyspnea, Denies dyspnea on exertion, Denies orthopnea, Denies paroxysmal nocturnal dyspnea and Denies slow heart rate Resp Denies cough, Denies dyspnea and Denies dyspnea on exertion GI Denies abdominal pain, Denies change in bowel habits, Denies excessive flatus, Denies nausea and Denies vomiting Denies urinary incontinence, Denies urinary hesitancy and Denies urinary urgency Musc Denies abnormal gait, Denies atrophy, Denies deformity and Denies limited range of motion Skin/Breast Denies bleeding lesions, Denies changing lesions and Denies rash Neuro Denies abnormal gait and Denies lack of coordination Physical exam (Primary Care) Vital Signs: Last Vital Signs BP 110/80 02/23/25 09:36 BMI result Body Mass Index 31.3 Tobacco/Smoking Status: Tobacco use Status Tobacco use date assessed 02/23/25 02/23/25 09:36 Patient Tobacco Use Status Never used Tobacco 02/23/25 09:36 Tobacco use type 02/18/24 09:39 e-Cigarette/Vaping Use Currently Using 02/23/25 09:36 PHQ-9: PHQ-9 Score PHQ-9: Total score 6 02/23/25 09:51 Depression Screening Interpretation: Positive Depression Screening Follow-up: Existing condition, In treatment, Community Mental Health Worker F/U and Follow-up Visit Requested Thrive Assessment: Date of Thrive Assessment Date Thrive assessed 02/16/25 02/23/25 09:36 Currently or been in a relationship where the following occur: No concerns reported [facility] Head: Yes normal to inspection, Yes normocephalic and Yes atraumatic Ears: external ears normal Eyes General: appearance normal, both eyes and all related structures Eyelids: Yes eyelids normal Conjunctivae: conjunctivae normal Neck Neck: Yes normal visual inspection and Yes supple Resp Effort & Inspection: normal respiratory effort Auscultation: clear to auscultation bilaterally Cardio Jugular venous distension: no JVD Rate: regular rate Rhythm: regular rhythm Heart sounds: S1 normal heart sound present and S2 normal heart sound present GI Inspection: Yes normal to inspection Palpation (GI): Soft to palpation and nontender Auscultation: normal bowel sounds Skin General skin exam: no rashes or lesions noted Neuro General: no focal motor deficits Extrem General: Yes full ROM Psych Appearance: grossly normal Immunizations Boostrix Tdap 2.5 Lf unit-8 mcg-5 Lf/0.5 mL intramuscular syringe Performing Provider: Breanna Raymond MD Performing Location: [facility] Administered by: CATRACHITA Cardoso on 02/23/25 10:04 Dose Route Admin Location Dispensed Lot Number Expiration Date NDC General Pediatrician 0.5 mL IM Right Deltoid 0.5 mL [id number] 05/16/27 51027-375-00 Cube Route VIS Given Date VIS Provided VIS Publication Date 02/23/25 Single Vaccine 24 Eligibility Eligibility Date Funding Source Not [facility] Eligible 02/23/25 Private Coding Level of Care Code Est Pt Level 3 (61658) Est Pt Prev Care 18-39y(20974) Diagnoses Physical exam Z00.00 Mild major depression F32.0 Irregular menses N92.6 ADD (attention deficit disorder) F98.8 Additional Codes PHQ-9 - 76983 - PHQ-9 Billing: Yes ([id number]) LANDON-7 Assessment Billing - LANDON-7 Assessment Tool: LANDON-7 Assessment 06519 ([id number]) Time Spent (min) 33 Assessment & Plan Assessment & Plan (1) Physical exam: Code(s): Z00.00 - Encounter for general adult medical examination without abnormal findings Category: Medical (2) Mild major depression: Code(s): F32.0 - Major depressive disorder, single episode, mild Category: Medical (3) Irregular menses: Code(s): N92.6 - Irregular menstruation, unspecified Category: Medical (4) ADD (attention deficit disorder): Code(s): F98.8 - Other specified behavioral and emotional disorders with onset usually occurring in childhood and adolescence Category: Medical Plan The patient had a Tdap vaccine administered today, addressing her uncertain tetanus immunization status. Her depressive disorder will continue to be managed with Bupropion, while addressing the potential drowsiness from Hydroxyzine. Naltrexone is advised to continue with a cautious approach to alcohol. Annual screening procedures were normal, and a plan for Nexplanon replacement in 2024 is discussed given recent menstrual irregularities. Referrals to [employer] [employer], psychiatry, and counseling have been initiated in light of menstrual concerns and past Borderline Personality Disorder. Medication concerns, specifically related to attention, have been deliberated, emphasizing adverse potentialities of amphetamines. The patient has been guided to continue following low-calorie beverage choices while exploring stress management strategies to tackle lifestyle-related weight gain. Patient was informed and verbally consented to the use of an ambient scribe for clinic note documentation during this visit. I discussed the importance of receiving the Tdap vaccine given the patient's uncertainty about her last booster, ensuring she remains current with immunizations. We reviewed the effectiveness of her current depressive disorder regimen. I advised the continued cautious use of Naltrexone, particularly regarding alcohol due to adverse effects integrating alcohol use. Screening test status was reviewed, encouraging the timeline for Nexplanon change given the irregular menstrual events. Plans for specialists including [employer] [employer], psychiatry, and counseling referrals were set for further evaluation of menstrual irregularities and past personality disorder diagnosis, respectively. Additionally, I addressed concerns about the use of Adderall, discussing cardiovascular risks and seeking alternatives for attention issues. Nutritional advice was provided to maintain lower-calorie consumption to manage weight, focusing on potential dietary and lifestyle alterations to resolve the patient's reported issues. Orders: Orders Comprehensive [place]. Panel Fast Today Z00.00 - Encounter for general adult medical examination without abnormal findings Lipid Panel Today Z00.00 - Encounter for general adult medical examination without abnormal findings Referrals [facility] [employer] Referral N92.6 - Irregular menstruation, unspecified Psychiatry Outpatient Consultation Service F98.8 - Other specified behavioral and emotional disorders with onset usually occurring in childhood and adolescence Counseling Referral F32.0 - Major depressive disorder, single episode, mild, F43.10 - Post-traumatic stress disorder, unspecified Patient Instructions: - Received Tdap vaccine today, no further tetanus booster needed for 10 years. - Continue with Bupropion medication; be aware of drowsiness from Hydroxyzine. - Avoid alcohol while taking Naltrexone to prevent side effects. - Expect [facility] [employer], psychiatry, and counseling referrals to discuss menstrual health and mental wellness. - Monitor and manage stress-related weight gain; opt for low-calorie beverages and explore strategies to reduce stress. - Follow-up with referral appointments as scheduled. - Contact us if symptoms change or worsen.
[2025-02-23 09:36] VITALS: BP 110/80; BMI 31.3
--- OUTSIDE RECORDS SUMMARY | 2025-02-23 10:02 | XMS_ITS | Continuity of Care Document ---
Author Name [facility] Organization [facility] Care Team Providers Care [place] Worker Name Role Phone [facility] Unavailable Unavailable Problems Combined list of problems from Department of [facility] and [facility] facilities. It does not include entries that were removed or entered in error. 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 Medication Details Route Status Patient Instructions Prescription Expires Prescription Number Last Dispense Date Ordering Provider Order Date Order Qty Source BUPROPION XL (bupropion HCl), 150 MG, TAB ER 24H, ORAL, CIP[employer] 500 ea. BOTTLE Active [id number] 4 2023 90 Pharmac y Data Transac tion Service Facilit y FLUCONAZOLE (fluconazol e), 150 MG, TABLET, ORAL, [facility]YDUS [facility]ARMACE[facility], 12 ea. BLIST PACK Active [id number] 4 2023 1 Pharmac y Data Transac tion Service Facilit y FLUOXETINE HCL (fluoxetine HCl), 10 MG, CAPSULE, ORAL, [facility], 1000 ea. BOTTLE Active [id number] 4 2023 7 Pharmac y Data Transac tion Service Facilit y FLUOXETINE HCL (fluoxetine HCl), 20 MG, CAPSULE, ORAL, TIME-CAP [facility]S, 1000 ea. BOTTLE Active [id number] 4 2023 30 Pharmac y Data Transac tion Service Facilit y HYDROXYZINE HCL (hydroxyzin e HCl), 25 MG, TABLET, ORAL, [facility], 500 ea. BOTTLE Active [id number] 4 2023 60 Pharmac y Data Transac tion Service Facilit y HYDROXYZINE HCL (hydroxyzin e HCl), 25 MG, TABLET, ORAL, [facility], 500 ea. BOTTLE Active [id number] 4 2023 60 Pharmac y Data Transac tion Service Facilit y NALTREXONE HCL (NALTREXONE HCL), 50 MG, TABLET, ORAL, [facility], 30 ea. BOTTLE Active [id number] 2023 30 Pharmac y Data Transac tion Service Facilit y NALTREXONE HCL (NALTREXONE HCL), 50 MG, TABLET, ORAL, [facility], 30 ea. BOTTLE Active [id number] 4 2023 30 Pharmac y Data Transac tion Service Facilit y NALTREXONE HCL (NALTREXONE HCL), 50 MG, TABLET, ORAL, [facility], 30 ea. BOTTLE Active [id number] 4 2023 15 Pharmac y Data Transac tion Service Facilit y Nitrofurant oin ([facility]) 100 CAPSULE in 1 BOTTLE Active [id number] 4 2023 14 Pharmac y Data Transac tion Service Facilit y PHENAZOPYRI DINE HCL (phenazopyr idine HCl), 100 MG, TABLET, ORAL, [facility], 100 ea. BOTTLE Active [id number] 4 2023 6 Pharmac y Data Transac tion Service Facilit y Allergies, Adverse Reactions, Alerts Combined list of allergies from Department of Defense and Veterans Affairs facilities. It does not include entries that were removed or entered in error. Substance Category Reaction Severity Reaction type Status Date Reported Comments Source No Known Allergies Drug allergy (disorder) active 11/29/2022 DoD Immunizations Combined list of available immunizations from the Department of Defense and Veterans Affairs facilities. 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 Comments Source influenza virus vaccine, inactivated 2023 VIRGIE NEWMANSBANKYashira Shoul kar, left (delt oid) [id number] 150 [email or web address], [employer] complet ed influenza virus vaccine, inactivat ed 12/26/23 Given 0035C-N [facility] influenza virus vaccine, inactivated 2022 FRANKIEINESARMI ENTOZOSA Shoul kar, left (delt oid) [id number] 158 [employer], A [employer] complet ed influenza virus vaccine, inactivat ed 10/09/22 Given 0232C-N [facility] [employer] influenza, injectable, quadrivalent, preservative free 2020 AZAD, () Not Given influenza , injectabl e, quadrival ent, preservat jamison free DoD influenza, injectable, quadrivalent- pf 2020 JERMAINESARMI ENTOZOSA 150 complet ed Result Comment: Route: Unknown Manufactu rer: OTH (KAY) 0232C-N [facility] l COVID Vaccine Pfizer 2020 KYLERMLENZ Shoul kar, right (delt oid) [id number] PFIZER complet ed COVID Vaccine Pfizer 01/05/21 Given 0029C-N [facility] COVID Vaccine Pfizer 2020 ARIANAMMCRIMM ON Shoul kar, left (delt oid) [id number] P[employer] complet ed COVID Vaccine Pfizer 12/15/20 Given 0029C-N [facility] influenza, injectable, quadrivalent, contains preservative 1 2019 MALENA VILLAGRAN [id number] 158 [employer] (SEQ) complet ed influenza , injectabl e, quadrival ent, contains preservat jamison DoD Influenza, injectable, quadrivalent, preservative free 0 2019 [id number] 699 150 [employer] (SEQ) complet ed Influenza , injectabl e, quadrival ent, preservat jamison free DoD influenza, injectable, quadrivalent- pf 2018 [id number] 988 150 [employer] complet ed influenza , injectabl e, quadrival ent-pf 07/24/19 Given Ambulat ory Pharmac y influenza, injectable, quadrivalent 2018 [id number] 158 Unknown complet ed influenza , injectabl e, quadrival ent 07/24/19 Given Ambulat ory Pharmac y influenza, injectable, quadrivalent 2018 zzLef t Arm [id number] 988 158 Unknown complet ed influenza , injectabl e, quadrival ent 07/24/19 Given Ambulat ory Pharmac y influenza, injectable, quadrivalent- pf 2018 [id number] 988 150 [employer] complet ed influenza , injectabl e, quadrival ent-pf 07/24/19 Given Ambulat ory Pharmac y Influenza, injectable, quadrivalent, preservative free 0 2018 [id number] 988 150 [employer] (SEQ) complet ed Influenza , injectabl e, quadrival ent, preservat jamison free DoD influenza, injectable, quadrivalent, contains preservative 1 2018 SAMMY FERMIN V [id number] 988 158 Other (OTH) complet ed influenza , injectabl e, quadrival ent, contains preservat jamison DoD influenza, seasonal, injectable 2017 UNK 141 Unknown complet ed influenza , seasonal, injectabl e 06/21/18 Given Ambulat ory Pharmac y influenza, seasonal, injectable 2017 UNK 141 Unknown complet ed influenza , seasonal, injectabl e 06/21/18 Given Ambulat ory Pharmac y Influenza, seasonal, injectable 0 2017 UNK 141 Unknown (UNK) comple t ed Influenza , seasonal, injectabl e DoD hepatitis B adult vaccine 2017 zzLef t Arm [id number] complet ed hepatitis B adult vaccine 05/24/18 Given Ambulat ory Pharmac y hepatitis B vaccine, adult dosage 3 2017 FELIPE SOMMER [id number] [employer], [employer]. (DVX) complet ed hepatitis B vaccine, adult dosage DoD hepatitis B adult vaccine 2017 [id number] 43 GlaxoSmithKli ne complet ed hepatitis B adult vaccine 12/11/17 Given Ambulat ory Pharmac y hepatitis B adult vaccine 2017 zzLef t Arm [id number] 43 GlaxoSmithKli ne complet ed hepatitis B adult vaccine 12/11/17 Given Ambulat ory Pharmac y hepatitis B vaccine, adult dosage 2 2017 EDDIE HEADLEY [id number] 43 SmithKline (SKB) complet ed hepatitis B vaccine, adult dosage DoD Influenza, inj, MDCK, quadrivalent- pf 2016 [id number] [employer] complet ed Influenza , inj, MDCK, quadrival ent-pf 07/19/17 Given Ambulat ory Pharmac y Influenza, inj, MDCK, quadrivalent- pf 2016 zzRig ht Arm [id number] 171 [employer] complet ed Influenza , inj, MDCK, quadrival ent-pf 07/19/17 Given Ambulat ory Pharmac y Influenza, injectable, Madin Shadia Canine Kidney, preservative free, quadrivalent 1 2016 MAIRA ARDON [id number] 171 [employer] (SEQ) complet ed Influenza , injectabl e, Madin Shadia Canine Kidney, preservat jamison free, quadrival ent DoD hepatitis A vaccine, adult dosage 0 2016 52 () Not Given hepatitis A vaccine, adult dosage DoD poliovirus vaccine, inactivated 2016 [id number] sanofi pasteur complet ed polioviru s vaccine, inactivat ed 06/21/17 Given Ambulat ory Pharmac y hepatitis B pediatric/ado lescent 2016 [id number] 08 GlaxoSmithKli ne complet ed hepatitis B pediatric /adolesce nt 06/21/17 Given Ambulat ory Pharmac y poliovirus vaccine, inactivated 2016 zzRig Thigh [id number] 10 sanofi pasteur complet ed polioviru s vaccine, inactivat ed 06/21/17 Given Ambulat ory Pharmac y hepatitis B pediatric/ado lescent 2016 zzRig ht Thigh [id number] 08 GlaxoSmithKli ne complet ed hepatitis B pediatric /adolesce nt 06/21/17 Given Ambulat ory Pharmac y hepatitis B vaccine, pediatric or pediatric/ado lescent dosage 1 2016 VIDYA MATHIS [id number] 08 SmithMarakanaine (SKB) complet ed hepatitis B vaccine, pediatric or pediatric /adolesce nt dosage DoD poliovirus vaccine, inactivated 1 2016 VIDYA MATHIS [id number] 10 Sanofi Pasteur (PMC) complet ed polioviru s vaccine, inactivat ed DoD measles and rubella virus vaccine 0 2016 04 () Not Given measles and rubella virus vaccine DoD varicella virus vaccine 0 2016 21 () Not Given varicella virus vaccine DoD measles and rubella virus vaccine 0 2016 04 () Not Given measles and rubella virus vaccine DoD varicella virus vaccine 0 2016 21 () Not Given varicella virus vaccine DoD meningococcal oligosacchari de (MCV4O) 2016 [id number] sanofi pasteur complet ed meningoco ccal oligosacc haride (MCV4O) 04/26/17 Given Ambulat ory Pharmac y adenovirus vaccine, live 2016 [id number] 0 143 Teva Pharmaceutica ls complet ed adenoviru s vaccine, live 04/26/17 Given Ambulat ory Pharmac y tetanus, diphtheria, acellular pertu is 2016 [id number] 115 GlaxoSmithKli ne complet ed tetanus, diphtheri a, acellular pertussis 04/26/17 Given Ambulat ory Pharmac y adenovirus vaccine, live 2016 [id number] 0 143 Teva Pharmaceutica ls complet ed adenoviru s vaccine, live 04/26/17 Given Ambulat ory Pharmac y meningococcal oligosacchari de (MCV4O) 2016 zzRig ht Arm [id number] sanofi pasteur complet ed meningoco ccal oligosacc haride (MCV4O) 04/26/17 Given Ambulat ory Pharmac y tetanus, diphtheria, acellular pertu is 2016 zzLef t Arm [id number] 115 GlaxoSmithKli ne complet ed tetanus, diphtheri a, acellular pertussis 04/26/17 Given Ambulat ory Pharmac y tuberculin purified protein derivative 2016 zzLef t Arm [id number] 96 sanofi pasteur complet ed tuberculi n purified protein derivativ e 04/26/17 Given Ambulat ory Pharmac y tuberculin skin test; purified protein derivative solution, intradermal 1 2016 Unknown, Provider [id number] 96 Sanofi Pasteur (PMC) complet ed tuberculi n skin test; purified protein derivativ e solution, intraderm al DoD tetanus toxoid, reduced diphtheria toxoid, and acellular pertu is vaccine, adsorbed 1 2016 Unknown, Provider [id number] 115 [facility] tetanus toxoid, reduced diphtheri a toxoid, and acellular pertussis vaccine, adsorbed DoD meningococcal oligosacchari de (groups A, C, Y and W-135) diphtheria toxoid conjugate vaccine (MCV4O) 1 2016 Unknown, Provider [id number] 136 Sanofi Pasteur (PMC) complet ed meningoco ccal oligosacc haride (groups A, C, Y and W-135) diphtheri a toxoid conjugate vaccine (MCV4O) DoD Adenovirus, type 4 and type 7, live, oral 1 2016 Unknown, Provider [id number] 143 [facility] (BRR) complet ed Adenoviru s, type 4 and type 7, live, oral DoD Results Combined list of recent chemistry, hematology and other laboratory results from Department of Defense and Veterans Affairs, ranging from 15 months to all on record, depending upon the facility. Order Name Results Value Reference Range Date Interpretation Specimen Comments Source Infectio us Disease HIV-1/2 AG/AB 4G CDD LC NEGATIVE 12/25 Result Comment: Performed At: 1 [facility] [address] [place] [address] ADELFO PEREIRA PHD Ph:[phone] 63 0035[facility] Infectio us Disease Source of Test.LC Gen Force Test (12/26/23 9:02 AM) 12/25 N 0035A[facility] Infectio us Disease Strep A, Rapid Neg (05/12/23 1:16 PM) 05/12 N [facility] Influ[facility] A PCR NEGATIVE [facility] Influenza B PCR NEGATIVE 05/12 [facility] Infectio us Disease SARS-CoV-2 PCR NEGATIVE 05/12 Interpretiv e Data: SARS-CoV-2 POSITIVE: The 2019 novel coronavirus (SARS-CoV-2 ) target nucleic acids are detected. The SARS-CoV-2 signal for the N2 nucleic acid target or signals for both nucleic acid targets (N2 and E) have a Ct within the valid range and endpoint above the minimum setting. SARS-CoV-2 PRESUMPTIVE POS: The 2019 novel coronavirus (SARS-CoV-2 ) nucleic acids may be present. Sample should be retested according to the Retest Procedure in Section 17.2. For samples with a repeated presumptive positive result, additional confirmator y testing may be conducted, if it is necessary to differentia te between SARS-CoV-2 and SARS-CoV-1 or other Sarbecoviru s currently unknown to infect humans, for epidemiolog ical purposes or clinical management. The SARS-CoV-2 signal for only the E nucleic acid target has a Ct within the valid range and endpoint above the minimum setting SARS-CoV-2 NEGATIVE:Th 2018 novel coronavirus (SARS-CoV-2 ) target nucleic acids are not detected. The SARS-CoV-2 signals for two nucleic acid targets (N2 and E) do not have a Ct within the valid range and endpoint above the minimum setting +EUA comment The laboratory is certified under the Clinical Laboratory Improvement Program (CLIP) and College of Mare Pathologist s (CAP) as qualified to perform high complexity clinical laboratory testing.The se results were generated using the [facility] 2018-Novel Coronavirus (2018-nCoV) Real-time RT-PCR Diagnostic Panel. This assay is intended for the in vitroqualit ative detection of the SARS-CoV-2 (COVID-19) RNA in respiratory specimens from individuals meeting SARS-CoV-2 (COVID-19) clinical and/or epidemiolog ical criteria. Identificat ion of SARS-CoV-2 (COVID-19) is considered final. Negative results do not preclude SARS-CoV-2 (COVID-19) infection and should not be used as the sole basis for treatment or other patient management decisions. The [facility] 2018-Novel Coronavirus (2018-nCoV) Real-time RT-PCR Diagnostic Panel + is only for use under the Food and Drug Administrat ion's Emergency Use Authorizati on. -[facility] Infectio us Disease RESP SYNCYTIAL VIRUS PCR NEGATIVE 05/12[facility] Infectio us Disease Reason for Test? Screenin g (05/12/23 1:16 PM) 05/12 N [facility] Immunolo gy/Serol ogy T Pallidum Ab.LC Non Reactive 01/03 Result Comment: Performed At: [address] [id number] Mark Sweet MD Ph:[phone] Disease Strep A, Rapid Negative (10/30/22 3:48 PM) 10/30 N 0232A-[facility] [employer] Immunolo gy/Serol ogy RPR Qn.LC Non Reactive 10/16 Result Comment: Please Note: This test does not meet current guidelines for screening and diagnosis of syphilis. This test is intended for following treatment response in patients being treated for syphilis infection. To screen for syphilis infection, a reflex cascade that includes both RPR and a treponema-s pecific assay should be utilized, such as Treponema pallidum (Syphilis) Screening [place] (111800) or Rapid Plasma Reagin (RPR) Test With Reflex to Quantitativ e RPR and Confirmator y Treponema pallidum Antibodies (043686). Performed At: 01 [facility] [id number] [place] [address] [address] [id number] Ender Francis MD Ph:[phone] [place] [address] Infect us Disease Adenovirus Not Detected (10/11/22 10:18 PM) 10/[address] [place] [address] Infect us Disease Coronaviru s 229E Not Detected (10/11/22 10:18 PM) 10/[address] [place] [address] Infectio us Disease Coronaviru s HKU1 Not Detected (10/11/22 10:18 PM) 10/[address] [place] [address] Infect us Disease [place] nza 2 Not Detected (10/11/22 10:18 PM) 10/[address] [place] [address] Infect us Disease [place] nza 3 Not Detected (10/11/22 10:18 PM) 10/[address] [place] [address] Infectio us Disease [place] nza 4 Not Detected (10/11/22 10:18 PM) 10/[address] Infect us Disease Influenza B Not Detected (10/11/22 10:18 PM) 10/[address] Infect us Disease [place] nza 1 Not Detected (10/11/22 10:18 PM) 10/[address] [place] [address] Infect us Disease Human Metapneumo virus Not Detected (10/11/22 10:18 PM) 10/[address] [place] [address] Infect us Disease Human Rhinovirus /Enterovir us Detected *ABN* (10/11/22 10:18 PM) 10/[address] [place] [address] us Disease Influenza A Not Detected (10/11/22 10:18 PM) 10/[address] [place] [address] Disease Coronaviru s NL63 Not Detected (10/11/22 10:18 PM) 10/[address] [place] [address] Disease Coronaviru s OC43 Not Detected (10/11/22 10:18 PM) 10/[address] [place] [address] Disease Mycoplasma pneumoniae Not Detected (10/11/22 10:18 PM) 10/[address] [place] [address] Disease SARS-CoV-2 PCR Not Detected 25 (10/11/22 10:18 PM) 10/12 N Interpretiv e Data: SARS-CoV-2 detection results obtained using [employer] for molecular based testing. The laboratory is certified under Clinical Laboratory Improvement Program (CLIP) and College of [place] Pathologist s (CAP) as qualified to perform high complexity clinical laboratory testing. This is a diagnostic test indicated for testing individuals with signs and symptoms of SARS-CoV-2 (COVID-19). Results should be interpreted within the appropriate clinical setting of active or suspected infection. This test is not indicated, nor suitable, for screening asymptomati c individuals . This test has not been FDA cleared or approved. This test has been authorized by FDA under an EUA for use by authorized laboratorie s. This test has been authorized only for the detection of nucleic acid from SARS-CoV-2, not for any other viruses or pathogens. This test is only authorized for the duration of the declaration that circumstanc es exist justifying the authorizati on of emergency use of in vitro diagnostic tests for detection and/or diagnosis of COVID-19 under Section 564 (b) (1) of the Act, 21 U.S.C. Fact sheet for Healthcare Providers and Patients are available on the FDA website: https://www .fda.gov/Me dicalDevice s/Safety/Em ergencySitu atedgard/ucm1 [address]1006.htm [address] [place] [address] Infect us Disease Reason for Test? Diagnosi s (10/11/22 10:18 PM) 10/[address] [place] [address] Infect us Disease Chlamydia pneumoniae Not Detected (10/11/22 10:18 PM) 10/[address] [place] [address] Infect us Disease Resp PCR Interpreta tion See Interp 19 (10/11/22 10:18 PM) 10/12 N Interpretiv e Data: Detected: Genetic determinant s associated with organism and/or toxin was detected. Not detected: Genetic determinant s associated with organism and/or Toxin was not detected. Invalid: PCR test failure after multiple analyses. Probable inhibitor present in sample. Recollect and resubmit if clinically indicated. N/A: Organism not detected. Subtype/tox in/subgroup result is not applicable. [address] [place] [address] us Disease Respirator y Syncytial Virus Not Detected (10/11/22 10:18 PM) 10/[address] Infect us Disease Bordetella parapertus sis Not Detected (10/11/22 10:18 PM) 10/[address] [place] [address] Infect us Disease Bordetella pertussis Not Detected (10/11/22 10:18 PM) 10/[address] [place] [address] Chemistr y eGFR CKD EPI 81 mL/min/1 .73_m2 10/12 Interpretiv e Data: Estimated Glomerular Filtration Rate (eGFR) calculated using the 2020 Chronic Kidney Disease-Epi demiology (CKD-EPI) Collaborati on creatinine equation; units of measure are mL/min/1.73 m2. Results are only valid for adults (e18 years) whose serum creatinine is in steady state.? eGFR calculation s are not valid for patients with acute kidney injury and for patients on dialysis. ?Creatinine -based estimates of kidney function may also be inaccurate in patients with reduced creatinine generation due to decreased muscle mass (e.g., malnutritio n, severe hypoalbumin emia, sarcopenia, chronic neuromuscul ar disease, amputations , severe heart failure or liver disease) and in patients with increased creatinine generation due to increased muscle mass (e.g., muscle builders, anabolic steroids) or increased dietary intake. As drug clearance is proportiona l to total GFR and not GFR indexed to body surface area (BSA), in individuals with a BSA substantial ly different than 1.73 m2, drug dosing should be based the reported eGFRvalue de-indexed from BSA by multiplying by the individual s BSA and dividing by 1.73. CKD is diagnosed based on abnormaliti es of kidney structure or function, present for >3 months, with implication s for health and disease. CKD is classified and staged based on cause, eGFR and albuminuria (quantified as urine albumin to creatinine ratio). An eGFR >60 mL/min/1.73 m2 in the absence of increased urine albumin excretion or structural abnormaliti es does not represent CKD.eGFR (mL/min/1.7 3 m2) CKD stage Interpretat ion e90 G1 Normal 60-89 G2 Mild decrease 45-59 G3A Mild to moderate decrease 30-44 G3B Moderate to severe decrease 15-29 G4 Severe decrease <15 G5 Kidney failure [address] [place] [address] Hematolo gy RBC 4.4 10^6/uL 3.9 - 5.0106 10/[address] [place] [address] Hematolo gy WBC 8.6 10^3/uL 4.0 - 10.5103 10/[address] [place] [address] Hematolo gy Hematocrit 42.2 % 36.0 - 46.0 10/[address] [place] [address] Hematolo gy Hemoglobin 14.7 g/dL 12.0 - 15.3 10/[address] [place] [address] Hematolo gy MCV 97.0 fL 82.0 - 99.0 10/[address] [place] [address] [facility] 34.8 g/dL 32.0 - 36.0 10/[address] [place] [address] [facility] 33.8 pg 28.0 - 33.0 10/[address] [place] [address] Hematolo gy RDW CV 11.6 % 11.5 - 14.0 10/[address] [place] [address] Hematolo gy Platelets 368 10^3/uL 150 - 277541 10/[address] [place] [address] Hematolo gy MPV 9.2 fL 6.4 - 10.3 10/[address] [place] [address] Chemistr y A/G Ratio 1.8 1.5 - 2.0 10/[address] [place] [address] Chemistr y Albumin 5.0 g/dL 3.5 - 4.8 10/[address] [place] [address] Chemistr y Chloride 102 mmol/L 98 - 107 10/[address] [place] [address] Chemistr y Calcium 10.0 mg/dL 8.9 - 10.4 10/[address] [place] [address] Chemistr y AST 16 U/L 12 - 39 10/[address] [place] [address] Chemistr y ALT 11 U/L 17 - 63 10/[address] [place] [address] Chemistr y Alk Phos 75 U/L 40 - 129 10/12 N Interpretiv e Data: Increased intestinal alkaline phosphatase can be seen in blood group O and B secretors and after fatty meals. [address] [place] [address] Chemistr y Protein Total 7.8 g/dL 6.6 - 8.7 10/[address] [place] [address] Chemistr y Bilirubin Total 0.43 mg/dL 0.15 - 1.00 10/[address] [place] [address] Chemistr y Sodium 141 mmol/L 136 - 145 10/[address] [place] [address] Chemistr y Glucose Lvl 115 mg/dL 75 - 99 10/12 H Interpretiv e Data: Fasting=75- 99 mg/dL Impaired Fasting Glucose= 100 to 125 mg/dL Provisional Diagnosis of Diabetes= equal or greater than 126 mg/dL Non-Fasting = 75-139 mg/dL Impaired Non-Fasting Glucose= 140-199 mg/dL Provisional Diagnosis of Diabetes= equal or greater than 200 mg/dL [address] [place] [address] Chemistr y Creatinine Level 1.0 mg/dL 0.4 - 1.0 10/[address] Chemistr y CO2 29 mmol/L 22 - 32 10/[address] Chemistr y Globulin 2.8 g/dL 2.0 - 3.5 10/[address] Chemistr y BUN/Creat Ratio 14.0 10.0 - 25.0 10/[address] Chemistr y AGAP 10 mmol/L 6 - 16 10/[address] Chemistr y Potassium Lvl 4.2 mmol/L 3.5 - 5.1 10/[address] Chemistr y BUN 14 mg/dL 6 - 20 10/[address] Chemistr y Lipase Lvl 24 U/L 13 - 60 10/[address] Hematolo gy Lymphocyte % Auto 37.9 % 15.0 - 45.0 10/[address] Hematolo gy Neutro Absolute 4.19 10^3/uL 2.00 - 7.88457 10/[address] Hematolo gy Monocyte % Auto 10.3 % 4.0 - 11.0 10/[address] Hematolo gy Lymph Absolute 3.25 10^3/uL 1.00 - 4.82051 10/[address] Hematolo gy Coke Absolute 0.88 10^3/uL 0.20 - 0.04940 10/[address] Hematolo gy Eos Absolute 0.22 10^3/uL 0.00 - 0.68994 10/[address] Hematolo gy Eosinophil % Auto 2.6 % 0.0 - 6.0 10/[address] Hematolo gy Baso Absolute 0.02 10^3/uL 0.00 - 0.47514 10/[address] Hematolo gy Basophil % Auto 0.2 % 0.0 - 4.0 10/[address] Hematolo gy Imm. Granulocyt e Absolute 0.01 10^3/uL 0.00 - 0.10/[address] Hematolo gy Imm. Granulocyt e % 0.1 % 0.0 - 2.0 10/[address] Hematolo gy nRBC Absolute 0.00 10^6/uL 10/[address] Hematolo gy nRBC % Auto 0.0 % 10/[address] Hematolo gy Neutrophil % Auto 48.9 % 40.0 - 80.0 10/[address] Urinalys is UA Protein Negative (10/11/22 8:25 PM) 10/[address] Urinalys is UA Glucose Normal (10/11/22 8:25 PM) 10/[address] Urinalys is UA Ketones Negative (10/11/22 8:25 PM) 10/[address] Urinalys is UA Blood Negative (10/11/22 8:25 PM) 10/[address] Urinalys is UA Urobilinog en Normal (10/11/22 8:25 PM) 10/[address] Urinalys is UA Bili Negative (10/11/22 8:25 PM) 10/[address] Urinalys is UA pH 6.5 5.0 - 7.5 10/[address] [place] [address] Urinalys is UA Spec [place] 1.020 1.005 - 1.030 10/[address] [place] [address] Urinalys is UA Appear Clear 10/[address] [place] [address] Urinalys is UA Color Light-Ye llow 10/[address] [place] [address] Urinalys is UA Leuk Esterase Small *ABN* (10/11/22 8:25 PM) 10/[address] [place] [address] Urinalys is UA Nitrite Negative (10/11/22 8:25 PM) 10/[address] [place] [address] Urinalys is UA Clarity Clear 10/[address] [place] [address] Urinalys is UA Bacteria Rare /HPF 10/[address] [place] [address] Urinalys is UA Epi Squam Few /HPF 10/[address] [place] [address] Urinalys is UA WBC 1 /HPF 0 - 5 10/[address] [place] [address] Urinalys is UA RBC 1 /HPF 0 - 2 10/[address] [place] [address] Chemistr y Beta hCG, Urine Qual Negative 22 (10/11/22 8:25 PM) 10/12 N Interpretiv e Data: The first morning urine specimen usually contains the highest concentrati on of HCG and is therefore the best sample. Urine specimens from healthy men and healthy non-pregnan t women should not contain detectable levels of HCG. A Positive result means that HCG levels have been detected that are >25 mIU/ml. A Negative result means that HCG levels were not detected and that levels are below <25 mIU/ml. [address] [place] [address] Hematolo gy Baso Absolute 0.02 10^3/uL 0.00 - 0.37394 10/[address] [place] [address] Hematolo gy Basophil % Auto 0.3 % 0.0 - 4.0 10/[address] [place] [address] Hematolo gy Coke Absolute 0.56 10^3/uL 0.20 - 0.70073 10/[address] [place] [address] Hematolo gy Eos Absolute 0.15 10^3/uL 0.00 - 0.74925 10/[address] [place] [address] Hematolo gy Eosinophil % Auto 1.9 % 0.0 - 6.0 10/[address] [place] [address] Hematolo gy Lymph Absolute 1.74 10^3/uL 1.00 - 4.70156 10/[address] [place] [address] Hematolo gy Lymphocyte % Auto 22.5 % 15.0 - 45.0 10/[address] Hematolo gy Monocyte % Auto 7.3 % 4.0 - 11.0 10/[address] Hematolo gy Neutro Absolute 5.23 10^3/uL 2.00 - 7.29349 10/[address] Hematolo gy Neutrophil % Auto 67.7 % 40.0 - 80.0 10/[address] Hematolo gy nRBC Absolute 0.00 10^6/uL 10/[address] Hematolo gy Imm. Granulocyt e % 0.3 % 0.0 - 2.0 10/[address] Hematolo gy nRBC % Auto 0.0 % 10/[address] Hematolo gy Imm. Granulocyt e Absolute 0.02 10^3/uL 0.00 - 0.66803 10/[address] [place] [address] Chemistr y Glucose Fasting 88 mg/dL 75 - 99 10/09 N Interpretiv e Data: 100 to 125 mg/dL is categorized as an impaired fasting glucose and greater than or equal to 126 mg/dL is considered to be a provisional diagnosis of diabetes. [address] [place] [address] Chemistr y Cholestero l Total 185 mg/dL 130 - 200 10/09 N Interpretiv e Data: ADULT PEDIATRIC DESIRABLE: <200 <170 mg/dL BORDERLINE: 200-239 170-199 mg/dL HIGH: >239 >199 mg/dL [address] [place] [address] Chemistr y LDL 84 mg/dL 65 - 130 10/09 N Interpretiv e Data: ADULT PEDIATRIC DESIRABLE: <130 <110 mg/dL BORDERLINE: 130-159 110-129 mg/dL HIGH: >159 >129 mg/dL LDL calculation invalid if Triglycerid es >400 mg/dL. [address] [place] [address] Chemistr y Triglyceri meghna 84 mg/dL 50 - 199 10/09 N Interpretiv e Data: ADULT PEDS(0-9) PEDS(10-19) DESIRABLE: <150 <75 <90 mg/dL BORDERLINE: 150-199 75-99 90-129 mg/dL HIGH: >199 >99 >129 mg/dL If non fasting Triglycerid e >400 mg/dL, recommend performing a fasting lipid panel. [address] [place] [address] Chemistr y HDL Cholestero l 84 mg/dL 35 - 85 10/09 N Interpretiv e Data: ADULT PEDIATRIC DESIRABLE: >59 >45 mg/dL BORDERLINE: 40-59 40-45 mg/dL LOW: <40 <40 mg/dL [address] [place] [address] Chemistr y Non-HDL Cholestero l 101 mg/dL 30 - 129 10/09 N Interpretiv e Data: ADULT PEDIATRIC DESIRABLE: <160 <120 mg/dL BORDERLINE: 160-189 120-144 mg/dL HIGH: >189 >144 mg/dL Reference: (1) Adult Treatment Panel III (ATP III) Classificat ion by the National Cholesterol Education Program (NCEP) and (2) Expert Panel on Integrated guidelines for Cardiovascu lar Health and Risk Reduction in Children and Adolescents , 2002. [address] [place] [address] Chemistr y VLDL 17 mg/dL 8 - 30 10/09 N Interpretiv e Data: VLDL calculation invalid if Triglycerid es >400 mg/dL. [address] [place] [address] Urinalys is UA Leuk Esterase Negative (10/09/22 10:45 AM) 10/[address] [place] [address] Urinalys is UA Nitrite Negative (10/09/22 10:45 AM) 10/[address] Urinalys is UA Bili Negative (10/09/22 10:45 AM) 10/[address] Urinalys is UA Protein Negative (10/09/22 10:45 AM) 10/[address] Urinalys is UA Urobilinog en Normal (10/09/22 10:45 AM) 10/[address] Urinalys is UA pH 6.0 5.0 - 7.5 10/[address] Urinalys is UA Ketones Negative (10/09/22 10:45 AM) 10/[address] Urinalys is UA Blood Negative (10/09/22 10:45 AM) 10/[address] Urinalys is UA Appear Clear 10/[address] [place] [address] Urinalys is UA RBC 2 /HPF 0 - 2 10/[address] Urinalys is UA Epi Squam Rare /HPF 10/[address] Urinalys is UA Mucous Rare /LPF 10/[address] [place] [address] Urinalys is UA WBC 4 /HPF 0 - 5 10/[address] Urinalys is UA Bacteria 0 /HPF 10/[address] [place] [address] Urinalys is UA Spec [place] 1.021 1.005 - 1.030 10/[address] Urinalys is UA Color Yellow 10/[address] [place] [address] Urinalys is UA Clarity Clear 10/[address] [place] [address] Urinalys is UA Glucose Normal (10/09/22 10:45 AM) 10/[address] Hematolo gy Hemoglobin 14.7 g/dL 12.0 - 15.3 10/[address] [place] [address] Hematolo gy WBC 7.7 10^3/uL 4.0 - 10.5103 10/[address] Hematolo gy RBC 4.4 10^6/uL 3.9 - 5.0106 10/[address] Hematolo gy MCHC 33.6 g/dL 32.0 - 36.0 10/[address] Hematolo gy Platelets 384 10^3/uL 150 - [id number] 10/[address] Hematolo gy MCV 100.0 fL 82.0 - 99.0 10/[address] Hematolo gy MCH 33.6 pg 28.0 - 33.0 10/[address] Hematolo gy Hematocrit 43.7 % 36.0 - 46.0 10/[address] Hematolo gy MPV 9.6 fL 6.4 - 10.3 10/[address] Hematolo gy RDW CV 11.9 % 11.5 - 14.0 10/[address] Immunolo gy/Serol ogy T Pallidum Ab.LC COMMENT 10/09 A Result Comment: REACTIVE MINIMAL* In the absence of historical or clinical evidence of Treponemal infection this test result should be con- sidered EQUIVOCAL. A second specimen should be sub- mitted for serologic testing. Performed At: [address] [id number] Mark Sweet MD Ph:[phone] [address] [place] [address] [facility] Source of Test.LC Clinical ly Ind (10/09/22 10:45 AM) 10/[address] [place] [address] Infect us Disease HIV-1/2 AG/AB 4G CDD LC NEGATIVE 10/09 Result Comment: Performed At: [facility] [address] [facility] [address] [place] [address] ADELFO RANDALL PHD Ph:[phone] [address] [place] [address] Infect us Disease Chlamydia Scrn Negative 3 (10/09/22 10:45 AM) 10/09 N Interpretiv e Data: THESE ASSAYS ARE NOT FDA-CLEARED OR VALIDATED BY THE MANUFACTURE R (X-Scan Imaging) IN LESS THAN 14 YEAR AGE GROUP [address] [place] [address] us Disease GC Scrn Positive 9 *ABN* (10/09/22 10:45 AM) 10/09 A Interpretiv e Data: The Chlamydia trachomatis and Neisseria gonorrhoeae assays using the Aptima Combo 2 assay kit on Itaro System by [employer] are not FDA-approve d for conjunctiva l swab as specimen type. This source is validated and its performance characteris tics have been validated by [facility] IAW CLIA guidelines. [facility] is certified under the CLIA 1988 as qualified to perform high complexity clinical laboratory testing. THESE ASSAYS ARE NOT FDA-CLEARED OR VALIDATED BY THE MANUFACTURE R (X-Scan Imaging) IN LESS THAN 14 YEAR AGE GROUP [address] [place] [address] Infect us Disease Coronaviru s HKU1 Not Detected (10/05/22 10:35 AM) 10/[address] [place] [address] [facility] Coronaviru s NL63 Not Detected (10/05/22 10:35 AM) 10/[address] [place] [address] [facility] Coronaviru s OC43 Not Detected (10/05/22 10:35 AM) 10/[address] [place] [address] Infect us Disease Human Metapneumo virus Not Detected (10/05/22 10:35 AM) 10/[address] [place] [address] Infect us Disease Adenovirus Not Detected (10/05/22 10:35 AM) 10/[address] [place] [address] [facility] Coronaviru s 229E Not Detected (10/05/22 10:35 AM) 10/[address] [place] [address] Infect us Disease Resp PCR Interpreta tion See Interp 20 (10/05/22 10:35 AM) 10/05 N Interpretiv e Data: Detected: Genetic determinant s associated with organism and/or toxin was detected. Not detected: Genetic determinant s associated with organism and/or Toxin was not detected. Invalid: PCR test failure after multiple analyses. Probable inhibitor present in sample. Recollect and resubmit if clinically indicated. N/A: Organism not detected. Subtype/tox in/subgroup result is not applicable. [address] [place] [address] Infect us Disease Mycoplasma pneumoniae Not Detected (10/05/22 10:35 AM) 10/[address] [place] [address] Infect us Disease SARS-CoV-2 PCR Not Detected 26 (10/05/22 10:35 AM) 10/05 N Interpretiv e Data: SARS-CoV-2 detection results obtained using [employer] for molecular based testing. The laboratory is certified under Clinical Laboratory Improvement Program (CLIP) and [employer] of [employer] s (CAP) as qualified to perform high complexity clinical laboratory testing. This is a diagnostic test indicated for testing individuals with signs and symptoms of SARS-CoV-2 (COVID-19). Results should be interpreted within the appropriate clinical setting of active or suspected infection. This test is not indicated, nor suitable, for screening asymptomati c individuals . This test has not been FDA cleared or approved. This test has been authorized by FDA under an EUA for use by authorized laboratorie s. This test has been authorized only for the detection of nucleic acid from SARS-CoV-2, not for any other viruses or pathogens. This test is only authorized for the duration of the declaration that circumstanc es exist justifying the authorizati on of emergency use of in vitro diagnostic tests for detection and/or diagnosis of COVID-19 under Section 564 (b) (1) of the Act, 21 U.S.C. Fact sheet for Healthcare Providers and Patients are available on the FDA website: https://www .fda.gov/Me Fernandez s/Safety/Em ergencySitu ations/ucm1 [address]89.htm [address] [place] [address] Infect us Disease Reason for Test? Screenin g (10/05/22 10:35 AM) 10/[address] [place] [address] Infect us Disease Parainflue nza 4 Not Detected (10/05/22 10:35 AM) 10/[address] [facility] Respirator y Syncytial Virus Not Detected (10/05/22 10:35 AM) 10/[address] [facility] Bordetella parapertus sis Not Detected (10/05/22 10:35 AM) 10/[address] Infect us Disease Bordetella pertussis Not Detected (10/05/22 10:35 AM) 10/[address] Disease Chlamydia pneumoniae Not Detected (10/05/22 10:35 AM) 10/[address] [facility] Parainflue nza 3 Not Detected (10/05/22 10:35 AM) 10/[address] Infect us Disease Influenza A Not Detected (10/05/22 10:35 AM) 10/[address] [facility] Influenza B Not Detected (10/05/22 10:35 AM) 10/[address] Infect us Disease Parainflue nza 1 Not Detected (10/05/22 10:35 AM) 10/[address] Infect us Disease Parainflue nza 2 Not Detected (10/05/22 10:35 AM) 10/[address] us Disease Human Rhinovirus /Enterovir us Detected *ABN* (10/05/22 10:35 AM) 10/[address] Urinalys is UA Appear Clear (07/20/22 10:10 AM) 07/[address] [place] [address] [facility] Urinalys is UA Color Yellow (07/20/22 10:10 AM) 07/20 N [id number] Urinalys is UA Spec [place] 1.025 *NA* (07/20/22 10:10 AM) 1.005 - 1.030 07/[address] [place] [address] [facility] Urinalys is UA Nitrite Negative (07/20/22 10:10 AM) 07/[address] [place] [address] [facility] Urinalys is UA Ketones Negative mg/dL 07/[address] [place] [address] [facility] Urinalys is UA Clarity Clear (07/20/22 10:10 AM) 07/[address] [place] [address] [facility] Urinalys is UA Leuk Esterase Negative (07/20/22 10:10 AM) 07/[address] [place] [address] [facility] Urinalys is UA Blood Negative (07/20/22 10:10 AM) 07/[address] [place] [address] [facility] Urinalys is UA Protein Negative mg/dL 07/[address] [place] [address] [facility] Urinalys is UA Urobilinog en 1.0 E.U./dL 07/[address] [place] [address] [facility] Urinalys is UA Bili Negative (07/20/22 10:10 AM) 07/[address] [place] [address] [facility] Urinalys is UA pH 6.5 *NA* (07/20/22 10:10 AM) 5.0 - 7.5 07/[address] [place] [address] [facility] Urinalys is UA Glucose Negative mg/dL 07/[address] [place] [address] [facility] Infectio us Disease Chlamydia Scrn Positive *ABN* (04/12/22 9:54 AM) 04/12 [id number] GC Scrn Negative (04/12/22 9:54 AM) 04/[address] [place] [address] Diego Urinalys is UA Glucose Negative mg/dL 04/[address] [place] [address] [facility] Urinalys is UA Protein Negative mg/dL 04/[address] [place] [address] [facility] Urinalys is UA Ketones Negative mg/dL 04/[address] [place] [address] [facility] Urinalys is UA Blood Negative (04/12/22 9:54 AM) 04/[address] [place] [address] [facility] Urinalys is UA pH 6.0 *NA* (04/12/22 9:54 AM) 5.0 - 7.5 04/[address] [place] [address] [facility] Urinalys is UA Urobilinog en 0.2 E.U./dL 04/[address] [place] [address] [facility] Urinalys is UA Bili Negative (04/12/22 9:54 AM) 04/[address] [place] [address] [facility] Urinalys is UA Appear Clear (04/12/22 9:54 AM) 04/[address] [facility] Urinalys is UA Color LT. YELLOW 04/[address] [place] [address] [facility] Urinalys is UA Spec [place] 1.020 *NA* (04/12/22 9:54 AM) 1.005 - 1.030 04/[address] [place] [address] [facility] Urinalys is UA Clarity Clear (04/12/22 9:54 AM) 04/[address] [facility] Urinalys is UA Leuk Esterase TRACE 04/[address] [place] [address] [facility] Urinalys is UA Nitrite Negative (04/12/22 9:54 AM) 04/[address] [facility] Chemistr y Beta hCG, Urine Qual Negative 23 (04/12/22 9:54 AM) 04/12 N Interpretiv e Data: The first morning urine specimen usually contains the highest concentrati on of HCG and is therefore the best sample. Urine specimens from healthy men and healthy non-pregnan t women should not contain detectable levels of HCG. A Positive result means that HCG levels have been detected that are >25 mIU/ml. A Negative result means that HCG levels were not detected and that levels are below <25 mIU/ml. [id number] Infect us Disease HIV-1/2 AG/AB 4G CDD LC NEGATIVE 03/24 Result Comment: Performed At: [address] [place] [address] FOR DISEASE DETECTION [address] [place] [address] [address] [place] [address] ADELFO PEREIRA PHD Ph:[phone] [address] [place] [address] Disease Source of Test.LC Phys Exam (03/24/21 1:28 PM) 03/[address] [place] [address] Hematolo gy WBC 6.3 10^3/uL 4.0 - 10.5103 12/[address] [place] [address] Hematolo gy RBC 4.2 10^6/uL 3.9 - 5.0106 12/[address] [place] [address] Hematolo gy MCHC 34.3 g/dL 32.0 - 36.0 12/[address] [place] [address] [facility] MPV 9.8 fL 6.4 - 10.3 12/[address] [place] [address] Hematolo gy IPF % 0.9 % 1.1 - 6.1 12/[address] [place] [address] [facility] Platelets 303 10^3/uL 150 - [id number] 12/[address] [place] [address] Hematolo gy RDW CV 11.8 % 11.5 - 14.0 12/[address] [place] [address] Hematolo gy MCV 95.9 fL 82.0 - 99.0 12/[address] [place], [place] [address]olo gy MCH 32.9 pg 28.0 - 33.0 12/[address] [place] [address] Hematolo gy Hemoglobin 13.7 g/dL 12.0 - 15.3 12/[address] [place], [place] [address]olo gy Hematocrit 39.9 % 36.0 - 46.0 12/[address] [place] [address] Chemistr y Calcium 9.6 mg/dL 8.9 - 10.4 12/[address] [place] [address] Chemistr y Chloride 101 mmol/L 98 - 107 12/[address] [place] [address] Chemistr y Sodium 137 mmol/L 136 - 145 12/[address] [place] [address] Chemistr y Glucose Lvl 85 mg/dL 75 - 99 12/15 N Interpretiv e Data: Fasting=75- 99 mg/dL Impaired Fasting Glucose= 100 to 125 mg/dL Provisional Diagnosis of Diabetes= equal or greater than 126 mg/dL Non-Fasting = 75-139 mg/dL Impaired Non-Fasting Glucose= 140-199 mg/dL Provisional Diagnosis of Diabetes= equal or greater than 200 mg/dL [address] [place] [address] Chemistr y Creatinine Level 0.8 mg/dL 0.4 - 1.0 12/[address] [place] [address] Chemistr y CO2 24 mmol/L 22 - 32 12/[address] [place] [address] Chemistr y BUN 11 mg/dL 6 - 20 12/[address] [place] [address] Chemistr y Osmo Calc 283 mOsm/kg 277 - 308 12/[address] [place] [address] Chemistr y BUN/Creat Ratio 13.8 10.0 - 25.0 12/[address] [place] [address] Chemistr y AGAP 12 mmol/L 6 - 16 12/[address] [place] [address] Chemistr y Potassium Lvl 4.4 mmol/L 3.5 - 5.1 12/[address] [place] [address] Hematolo gy Basophil % Auto 0.6 % 0.0 - 4.0 12/[address] Hematolo gy Eos Absolute 0.33 10^3/uL 0.00 - 0.49212 12/[address] Hematolo gy Eosinophil % Auto 5.2 % 0.0 - 6.0 12/[address] Hematolo gy Coke Absolute 0.63 10^3/uL 0.20 - 0.10506 12/[address] Hematolo gy Monocyte % Auto 10.0 % 4.0 - 11.0 12/[address] Hematolo gy Lymph Absolute 2.17 10^3/uL 1.00 - 4.79363 12/[address] Hematolo gy Lymphocyte % Auto 34.3 % 15.0 - 45.0 12/[address] Hematolo gy Neutro Absolute 3.14 10^3/uL 2.00 - 7.92738 12/[address] Hematolo gy Neutrophil % Auto 49.7 % 40.0 - 80.0 12/[address] Hematolo gy nRBC Absolute 0.00 10^6/uL 12/[address] Hematolo gy nRBC % Auto 0.0 % 12/[address] Hematolo gy Imm. Granulocyt e Absolute 0.01 10^3/uL 0.00 - 0.87283 12/[address] Hematolo gy Imm. Granulocyt e % 0.2 % 0.0 - 2.0 12/[address] Hematolo gy Baso Absolute 0.04 10^3/uL 0.00 - 0.94305 12/[address] Chemistr y eGFR AA 121 mL/min/1 .73_m2 12/15 [id number] Chemistr y eGFR Non-AA 105 mL/min/1 .73_m2 12/15 Interpretiv e Data: INTERPRETAT ION: >= 90 = Normal eGFR in most healthy patients. 60-89 = Mildly decreased eGFR, not independent ly diagnostic of renal disease in the absence of kidney damage (e.g. proteinuria ). 30-59 = Moderately decreased eGFR. 15-29 = Severely decreased eGFR. <15 = Kidney failure. This result is an estimated glomerular filtration rate (eGFR) only, and has been derived from the Chronic Kidney Disease Epidemiolog y Collaborati on (CKD-EPI) equation. The full units are mL/min/1.73 m2. [facility] cannot automatical ly adjust the calculation for (AA) patients, therefore two eGFR's are reported - GFR-AA and GFR-STEVIE. The calculation is not accurate for pediatric patients; therefore no eGFR will be reported on patients <18 years of age. The calculation automatical ly takes patient sex into account, but as with all estimations , results may not be valid for certain sub-groups including: severely hypoalbumin emic patients, patients not in steady state (including acute renal failure), dialysis patients, patients with extremes of muscle mass (including frail elderly, critically ill, obese, and cancer patients, as well those who have had an amputation or who participate in strenuous exercise) and those with atypical diets. Some pharmacolog ical therapeutic s are dosed based on older versions of the eGFR. Where deemed necessary, refer to Pharmacy for assistance or more information . [address] [place] [address] Vital Signs Combined list of inpatient and outpatient Vital Signs from Department of Defense and Veterans Affairs, ranging from 12 months to all on record, depending upon the facility. Vital Sign Value Date Comments Source Respiratory Rate 14 br/min 12/15/2020 19:52:00 0232[facility] Mean Arterial Pressure, Calc 90 mm[Hg] 12/15/2020 19:52[facility] 12[facility]15/2020 19[facility]52[facility] Blood [facility] Manual Automatic 12/15/2020 19:52:00 0232[facility] Respiratory Rate 16 br/min 08/02/2022 18:38:00 [facility] Temperature Oral 36.7 Missy 08/02/2022 18:38:00 [facility] BP Site Right arm 08/02/2022 18:38:00 0232[facility] Blood Pressure Manual Automatic 08/02/2022 18:38:00 [facility] Systolic Blood Pressure 125 mm[Hg] 08/02/20 22 18:38:00 [facility] Diastolic Blood Pressure 74 mm[Hg] 022 18:38:00 [facility] Mean Arterial Pressure, Calc 91 mm[Hg] 08/02/2022 18:38:00 [facility]32[facility] Peripheral Pulse Rate 74 bpm 08/02/2022 18:38:00 [facility] Emergency [facility] Temperature Oral 36.8 Missy 05/12/2023 19:51:00 [facility] Respiratory Rate 17 br/min 05/12/2023 19:51:00 [facility] Systolic Blood Pressure 123 mm[Hg] 05/12/20 23 19:51:00 [facility]24[facility] Diastolic Blood Pressure 77 mm[Hg] 023 19:51:00 [facility]24[facility] Peripheral Pulse Rate 75 bpm 05/12/2023 19:51:00 0024[facility] Blood Pressure Manual Automatic 09/20/2022 23:24:00 0232C-[facility] Systolic Blood Pressure 105 mm[Hg] 09/20/19 23 23:24:00 0232C-[facility] Diastolic Blood Pressure 69 mm[Hg] 023 23:24:00 0232C[facility] BP Site Right arm 09/20/2022 23:24:00 [facility] Oral 36.9 Missy 09/20/2022 23:24[facility] Respiratory Rate 14 br/min 09/20/2022 23:24:00 [facility] Mean Arterial Pressure, Calc 81 mm[Hg] 09/20/2022 23:24:00 0232[facility] Peripheral Pulse Rate 63 bpm 09/20/2022 23:24:00 [facility] BP Site Left arm 04/12/2022 15:56:00 [facility] Blood Pressure Manual Automatic 04/12/2022 15:56:00 [facility] Respiratory Rate 18 br/min 04/12/2022 15:56:00 [facility] Temperature Oral 36.7 Missy 04/12/2022 15:56:00 [facility] Systolic Blood Pressure 130 mm[Hg] 04/12/20 22 15:56:00 [facility] Diastolic Blood Pressure 78 mm[Hg] 022 [facility] Mean Arterial Pressure, Calc 95 mm[Hg] 04/12/2022 15:56:00 [facility] Peripheral Pulse Rate 55 bpm 04/12/2022 15:56[facility] Respiratory Rate 15 br/min 06/12/2021 16:14:00 0029A[facility] Peripheral Pulse Rate 98 bpm 06/12/2021 16:14:00 0029A-[facility] Systolic Blood Pressure 118 mm[Hg] 06/12/20 21 16:14:00 0029A[facility] Diastolic Blood Pressure 81 mm[Hg] 021 16:14:00 0029A[facility] Temperature Oral 36.7 Missy 06/12/2021 16:14:00 0029[facility] Mean Arterial Pressure, Calc 101 mm[Hg] 07/20/2022 16:56:00 [facility] Peripheral Pulse Rate 71 bpm 07/20/2022 16:56:00 0232C[facility] Systolic Blood Pressure 132 mm[Hg] 07/20/20 22 16:56:00 0232[facility] Diastolic Blood Pressure 85 mm[Hg] 022 16:56:00 0232[facility] BP Site Right arm 07/20/2022 16:56:00 [facility] Blood Pressure Manual Automatic 07/20/2022 16:56:00 0232[facility] Temperature Oral 36.9 Missy 07/20/2022 16:56:00 [facility] Respiratory Rate 16 br/min 07/20/2022 16:56:00 [facility] Mean Arterial Pressure, Calc 100 mm[Hg] 06/24/2021 17:24:00 [facility] Peripheral Pulse Rate 70 bpm 06/24/2021 17:24:00 [facility] Respiratory Rate 14 br/min 06/24/2021 17:24:00 [facility] Temperature Oral 37.0 Missy 06/24/2021 17:24:00 [facility] BP Site Left arm 06/24/2021 17:24:00 [facility] Blood Pressure Manual Automatic 06/24/2021 17:24:00 0232[facility] Systolic Blood Pressure 130 mm[Hg] 06/24/20 21 17:24:00 0232[facility] Diastolic Blood Pressure 85 mm[Hg] 021 17:24:00 [facility] Systolic Blood Pressure 113 mm[Hg] 10/05/19 23 16:52:00 0232[facility] Diastolic Blood Pressure 62 mm[Hg] 023 16:52[facility] Mean Arterial Pressure, Calc 79 mm[Hg] 10/05/2022 16:52:00 [facility] Temperature Oral 36.7 Missy 10/05/2022 16:52:00 [facility] Peripheral Pulse Rate 614 bpm 10/05/2022 16:52:00 [facility] Respiratory Rate 14 br/min 10/05/2022 16:52:00 [facility] BP Site Right arm 10/05/2022 16:52:00 [facility] Blood Pressure Manual Automatic 10/05/2022 16:52:00 [facility] Blood Pressure Manual Automatic 01/23/2022 18:21:00 [facility] BP Site Right arm 01/23/2022 18:21:[address] [place], [place] [address]S [facility] Mean Arterial Pressure, Calc 87 mm[Hg] 01/23/2022 18:21:00 [facility] Peripheral Pulse Rate 60 bpm 01/23/2022 18:21:00 0232C[facility] Systolic Blood Pressure 118 mm[Hg] 01/24/20 22 18:21:00 0232C[facility] Diastolic Blood Pressure 72 mm[Hg] 022 18:21:00 0232C[facility] Medical [facility] Temperature Oral 36.9 Missy 01/23/2022 18:21:00 0232C[facility] Respiratory Rate 16 br/min 10/12/2022 04:15:00 0029A-[facility] Systolic Blood Pressure 120 mm[Hg] 10/12/19 23 04:15:00 0029A[facility] Diastolic Blood Pressure 74 mm[Hg] 023 04:15:00 0029A[facility] Temperature Oral 37.1 Missy 10/12/2022 04:15:00 0029A-[facility] Peripheral Pulse Rate 74 bpm 10/12/2022 04:15:00 0029A[facility] Encounters Combined list of: 1) Encounters from Department of Veterans Affairs facilities going backup to the last 18 months, not all VA inpatient encounters are included; 2) Encounters from the Department of Defense facilities going backup to 280 months. Location Location Details Encounter Type Encounter Number Reason For Visit Attending Provider ADM Date DC Date Status Disposition Source [facility] [id number] JOHN MATAMOROS 04/24 Released w/o Limitations [facility] OUTPATIENT [id number] DOT GARCIA 04/24 Released w/o Limitations [facility]) [facility] [employer] Medical Process) OUTPATIENT [id number] INITIAL VISIT FOR INPROCE CANELO CAMILLE DUQUE Tito 04/27 Released w/o Limitations [facility] ) [facility]) OUTPATIENT [id number] Notes Entered by: REMIGIO FERNANDES 15 May 2017 1355 ------- ------- ------- ------- -- O/4042 - [facility] RYLIE VILCHIS 05/15 Released w/o Limitations [facility] Women [facility]) [facility] [employer]) OUTPATIENT [id number] 2nd visit for ince johnsanjay ANDRESSA PATRICA GREENITH 06/21 Released w/o Limitations [facility] ) [facility] Extended [facility]) OUTPATIENT [id number] Notes Entered by: JOSE MANUEL GONZALES 15 Jul 2017 0804 ------- ------- ------- ------- -- F/U ALLERGI C AUDI PRITCHARD V 07/15 Released w/o Limitations [facility]) [facility] BAS) OUTPATIENT [id number] Notes Entered by: HUSSEIN LIU 16 Jul 2017 0636 ------- ------- ------- ------- -- O/4042- F/U [facility]/Nicolas KARISSA Freeman 07/16 Released w/o Limitations [facility] BN BAS) [facility]) OUTPATIENT [id number] Notes Entered by: FELIPE MATAMOROS 16 Jul 2017 1535 ------- ------- ------- ------- -- 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 BAS) [facility]( T BAS [address] Sick Call) OUTPATIENT [id number] Notes Entered by: MYRANDA LORENZ 30 Aug 2017 0646 ------- ------- ------- ------- -- cold/co STEPHANIE Moser 08/30 Released w/o Limitations [facility]( [facility] BAS [address] [facility]) [place]MONE [place]) OUTPATIENT [id number] Control Consult (ZTP) KULDEEP RODRIGUEZ 10/02 Released w/o Limitations [place]) [place]) OUTPATIENT [id number] ER f/u faintin g/vomit ing (Joe ons) (LD) KULDEEP RODRIGUEZ 10/16 Released w/o Limitations [place]) [facility]( [place] [facility]) OUTPATIENT [id number] Notes Entered by: LAWRENCE NAGY 11 Dec 2017 0932 ------- ------- ------- ------- -- cnatt/ hep b GEOVANNA STEPHEN 12/11 Released w/o Limitations [facility]( [facility] [place] [facility]) [facility]([place] - Med Home) OUTPATIENT [id number] lcpl seminar / [id number] OPHELIA LUNA 01/15 Released w/o Limitations [facility]( MAG 26 - Med Home) [facility]([place] 29 - Med Home) OUTPATIENT [id number] [facility] 366/ PHA/802 .[phone] 66 DILLON PEREZ 04/24 Released w/o Limitations [facility]( MAG 29 - Med Home) [facility]( ania Counts include 234 beds at the [facility]) OUTPATIENT [id number] Notes Entered by: NORTH CAVANAUGH 25 Apr 2018 0955 ------- ------- ------- ------- -- Pre-Dep sajan CAVANAUGH-KARISSA GAO 04/25 Released w/o Limitations [facility]( [facility]( [place] [facility]) OUTPATIENT [id number] Notes Entered by: Malka BEEBE 24 May 2018 0956 ------- ------- ------- ------- -- Hep B [id number] GEOVANNA STEPHEN 05/24 Released w/o Limitations [facility]( [facility] [place] [facility]) [facility]([place] - [place]) OUTPATIENT [id number]/ left foot pain/80 2.249.3 766 SAMMY PALUMBO 05/24 Released w/o Limitations [facility]( [place] 26 - Med Home) [facility]( [place] [facility]) TELE CONSULT [id number] Notes Entered by: ME MARIA L FOSTER 06 Jun 2018 1325 ------- ------- ------- ------- -- SAMMY Coello 06/06 [facility]( [facility] [place] [facility]) [facility]([place] - [facility]) OUTPATIENT [id number]/ NVD,H/A / SAMMY DUNN 11/06 Sick at Home/Quarter s [facility]( [place] 26 - Med Home) [facility]([place] - [facility] Home) OUTPATIENT [id number]/ cold Sx DILLON PEREZ 01/01 Sick at Home/Quarter s [facility]( [place] 29 - Med Home) [facility]( [place] [facility]) OUTPATIENT [id number] Notes Entered by: BIENVENIDO DORADO 23 Jan 2019 1347 ------- ------- ------- ------- -- STI KAVIN Drake 01/23 Released w/o Limitations [facility]( [facility] [place] [facility]) [facility]([place] - [facility]) OUTPATIENT [id number]/ SAMMY Barrios 02/03 Released w/o Limitations [facility]( [place] 29 - Med Home) [facility]) OUTPATIENT [id number] Notes Entered by: STEPHANIE DOUGLASS 08 Apr 2019 1316 ------- ------- ------- ------- -- ROSETTA Le 04/08 Released w/o Limitations [facility]( [facility]) [facility]([place] - Med Home) TELE CONSULT [id number] Notes Entered by: DILLON PEREZ 09 Apr 2019 0950 ------- ------- ------- ------- -- DILLON BARRAZA 04/09 [facility]( [place] 29 - Med Home) [facility]([place] - Med [facility]) OUTPATIENT [id number]/ nausea/ [id number] TERRELL ATKINS 05/05 Sick at Home/Quarter s [facility]( [place] 29 - Med Home) [facility] [place] [facility]) OUTPATIENT [id number] Notes Entered by: YULIANA FERMIN 24 Jul 2019 1336 ------- ------- ------- ------- -- JULIA Sosa 07/24 Released w/o Limitations [facility]( [facility] [place] [facility]) [facility](Gy necology Clinic) OUTPATIENT [id number] MELANI POON ANITA LANIER 08/19 Released w/o Limitations [facility]( Gynecol ogy Clinic) [facility]([place] - Med Home) OUTPATIENT [id number] MAG29/R ight ear pain X 1 day/214 [id number] KAVIN JIANG 10/22 Released w/o Limitations [facility]( [place] 29 - Med Home) [facility]([place] - Med Home) OUTPATIENT [id number]/ Cold symptom s/[id number] JAIMEE DEJESUS 11/06 Released w/o Limitations [facility]( [place] 26 - Med Home) [facility]([place] - Med [facility]) OUTPATIENT [id number] H 366// CPLS COURSE SCREENI NG// [id number] DILLON PEREZ 11/06 Released w/o Limitations [facility]( [place] 26 - Med Home) [facility]( [place] [facility]) OUTPATIENT [id number] Notes Entered by: Malka NIXON 06 Jan 2020 1054 ------- ------- ------- ------- -- MAG 29 HQ// AYANNA TMENT SCREENI NG// [id number] STARLA LIRA 01/05 Released w/o Limitations [facility]( [facility] [place] [facility]) [facility]) TELE CONSULT [id number] Notes Entered by: ANAI RAYGOZA 10 Feb 2020 1416 ------- ------- ------- ------- -- PFL Appoint KYLE Singh 02/09 [facility]( Substan ce Abuse Clinic) [facility]([place] - Med Home) OUTPATIENT [id number] Acute URI IGGY SLOAN 04/06 Released with Work/Duty Limitations [facility]( [place] 29 - Med Home) [facility]([place] VID[facility]) TELE CONSULT [id number] Notes Entered by: [address] L[address] 06 Apr 2020 1009 ------- ------- ------- ------- -- Covid JENNIFER Reynolds 04/06 [facility]( COVID19 Scrn Clinic) [facility]([place] - Med Home) OUTPATIENT [id number] MAG 29 HQ/CONT ACT TRACING / STARLA LIRA 04/06 Released with Work/Duty Limitations [facility]( [place] 26 - Med Home) [facility]) OUTPATIENT [id number] Notes Entered by: KAR FISHER 02 Jun 2020 1312 ------- ------- ------- ------- -- ASHLEIGH Lam 06/02 Released w/o Limitations [facility]( [facility]) [facility]([place] - Med Home) OUTPATIENT [id number] MAG-29/ /Close Contact Tracing / STARLA LIRA 06/23 Released with Work/Duty Limitations [facility]( [place] 26 - Med Home) [facility]([place] [facility]) TELE CONSULT [id number] Notes Entered by: CAROL SUAREZ 25 Jun 2020 0941 ------- ------- ------- ------- -- Covid19 Testing JENNIFER MOSQUEDA ARTURO 06/25 [facility]( COVID19 Scrn Clinic) [facility] 29 - Med [place]) OUTPATIENT [id number] Notes Entered by: ARIK VILLAGRAN 18 Aug 2020 1038 ------- ------- ------- ------- -- FLU VACCINE STARLA LIRA 08/18 Released w/o Limitations [facility]( [place] 29 - Med Home) [facility]([place] - [facility]) TELE CONSULT [id number] Notes Entered by: TSARLA LIRA 01 Sep 2020 0805 ------- ------- ------- ------- -- medicat ion STARLA LIRA 09/01 [facility]( [place] 29 - Med Home) [facility](Bobcat Driver/Labor Clinic) OUTPATIENT [id number] CLEVE TOMI WASHINGTON 09/23 Released w/o Limitations [facility]( ObGyn Clinic) Procedures Combined list of: 1) Procedures from Department of Veterans Affairs facilities going back up to thelast 18 months, not all VA non-surgical procedures are included; 2) All procedures from the Department of Defense facilities. Procedure Procedure Type Code Date Perfomer Comments [facility] e INFLUENZA VIRUS VACCINE, QUADRIVALENT (CCIIV4), DERIVED FROM CELL CULTURES, SUBUNIT, PRESERVATIVE AND ANTIBIOTIC FREE, 0.5 ML DOSAGE, FOR INTRAMUSCULAR USE [facility] COORDINATED CARE FEE, MAINTENANCE RATE [facility] IMMUNIZATION ADMINISTRATION (INCLUDES PERCUTANEOUS, INTRADERMAL, SUBCUTANEOUS, OR INTRAMUSCULAR INJECTIONS); EACH ADDITIONAL VACCINE (SINGLE OR COMBINATION VACCINE/TOXOID) [facility] MENINGOCOCCAL CONJUGATE VACCINE, SEROGROUPS A, C, W, Y, QUADRIVALENT, DIPHTHERIA TOXOID CARRIER (MENACWY-D) OR IFA813 CARRIER (MENACWY-CRM), FOR INTRAMUSCULAR USE [facility] AUDIOMETRIC TESTING OF GROUPS [facility] SCREENING TEST OF VISUAL ACUITY, QUANTITATIVE, BILATERAL [facility] REMOVAL WITH REINSERTION, NON-BIODEGRADABLE DRUG DELIVERY IMPLANT [facility] IMMUNIZATION ADMINISTRATION (INCLUDES PERCUTANEOUS, INTRADERMAL, SUBCUTANEOUS, OR INTRAMUSCULAR INJECTIONS); 1 VACCINE (SINGLE OR COMBINATION VACCINE/TOXOID) DoD WAIVER SERVICES; NOT OTHERWISE SPECIFIED (NOS) [facility] PATIENT EDUCATION, NOT OTHERWISE CLASSIFIED, NON-PHYSICIAN PROVIDER, GROUP, PER SESSION Do[facility] WAIVER SERVICES; NOT OTHERWISE SPECIFIED (NOS) [facility] TELE ASSESS & MGT SRV PROV QUAL NONPHYS HLTH CARE PRO TO EST PAT,PARENT,GUARD NOT ORIG REL ASSESS & MGT SRV PROV W/IN PREV 7 DAYS NOR LEAD ASSESS & MGT SRV/PX W/IN NXT 24 HR/SOON APT;5-10 MIN MED DIS [facility] ALCOHOL AND/OR DRUG SERVICES; CASE MANAGEMENT [facility] ALCOHOL AND/OR DRUG SERVICES; CASE MANAGEMENT [facility] PSYCHIATRIC DIAGNOSTIC EVALUATION [facility] ALCOHOL (ETHANOL); BREATH [facility] PSYCHOTHERAPY FOR CRISIS; FIRST 60 MINUTES [facility] SCREENING PAPANICOLAOU SMEAR; OBTAINING, PREPARING AND CONVEYANCE OF CERVICAL OR VAGINAL SMEAR TO LABORATORY [facility] IMMUNIZATION ADMINISTRATION (INCLUDES PERCUTANEOUS, INTRADERMAL, SUBCUTANEOUS, OR INTRAMUSCULAR INJECTIONS); 1 VACCINE (SINGLE OR COMBINATION VACCINE/TOXOID) [facility] PURE TONE AUDIOMETRY (THRESHOLD); AIR ONLY [facility] HEPATITIS B VACCINE (HEPB), ADULT DOSAGE, 3 DOSE SCHEDULE, FOR INTRAMUSCULAR USE [facility] PATIENT EDUCATION, NOT OTHERWISE CLASSIFIED, NON-PHYSICIAN PROVIDER, INDIVIDUAL, PER SESSION [facility] SCREENING TEST OF VISUAL ACUITY, QUANTITATIVE, BILATERAL [facility] HEPATITIS B VACCINE (HEPB), CPG-ADJUVANTED, ADULT DOSAGE, 2 DOSE OR 4 DOSE SCHEDULE, FOR INTRAMUSCULAR USE [facility] Immunization Administration One Vaccine Immunization Administration One Vaccine 06949 FELIPE SOMMER [facility] Patient education, not otherwise cla ified, non-physician provider, individual, per se ion KARISSA BELTRE [facility] Threshold Audiogram (Pure Tone) Automated Threshold Audiogram (Pure Tone) Automated 0208T KARISSA BELTRE [facility] Screening Test Of Visual Acuity, Quantitative, Bilateral Screening Test Of Visual Acuity, Quantitative, Bilateral [id number] DILLON PEREZ [facility] Immunization Administration One Vaccine Immunization Administration One Vaccine 77500 EDDIE HEADLEY [facility] Vaccines Vaccines 10200 017 MAIRA ARDON Influenza, injectable, MDCK, preservative free, quadrivalent; Series #: 1; .5 mL; IM; Right Arm; Mfg: Seq[employer]; Lot: [id number]; VIS given (Alexandra: 04/23/2015). [facility] Coordinated care fee, maintenance rate FELIPE MATAMOROS [facility] Case Management, each 15 minutes FELIPE MATAMOROS [facility] Immunization Administration One Vaccine Immunization Administration One Vaccine 05739 VIDYA MATHIS [facility] Immunization Administration Each Additional Vaccine Immunization Administration Each Additional Vaccine 01088 VIDYA MATHIS [facility] Hepatitis B Vaccine (Active); To 11 Years Hepatitis B Vaccine (Active); [place] To 11 Years 14197 017 VIDYA MATHIS Hep B, adolescent or pediatric; Series #: 1; .5 mL; IM; Right Thigh; Mfg: [employer]; Lot: [id number]. [facility] Vaccines Viral Polio, Inactivated (Salk) Vaccines Viral Polio, Inactivated (Salk) 57429 017 VIDYA MATHIS IPV; Series #: 1; .5 mL; IM; Right Thigh; Mfg: Sanofi Pasteur; Lot: [id number]. [facility] Skin Test Anergy Tuberculin Intradermal Skin Test Anergy Tuberculin Intradermal 19607 JUAN DIEGO GARCIA [facility] Tdap Vaccine Tdap Vaccine 25725 017 [place] Vaccines Adenovirus Type 7 Live, For Oral Use Vaccines Adenovirus Type 7 Live, For Oral Use 21486 [place] Immunization Administration One Vaccine Immunization Administration One Vaccine 01732 [place] Immunization Administration Each Additional Vaccine Immunization Administration Each Additional Vaccine 24853 [place] Immunization Admin Intranasal / Oral Each Additional Vaccine Immunization Admin Intranasal / Oral Each Additional Vaccine 89047 [place] Vaccines Adenovirus Type 4 Live, For Oral Use Vaccines Adenovirus Type 4 Live, For Oral Use 58440 [place] Venipuncture Venipuncture 57798 [place] Supervised Injection Intramuscular Antibiotic Supervised Injection Intramuscular Antibiotic 06370 [place] Screening Test Of Visual Acuity, Quantitative, Bilateral Screening Test Of Visual Acuity, Quantitative, Bilateral 34739 DOT GARCIA [facility] Audiometry Group Testing Audiometry Group Testing 91352 JOHN MATAMOROS [facility] -Supervised Group Educational Services -Supervised Group Educational Services 14975 JOHN MATAMOROS [facility] Threshold Audiogram (Pure Tone) Threshold Audiogram (Pure Tone) 59965 ROSETTA DAVIS [facility] Immunization Administration One Vaccine Immunization Administration One Vaccine 05012 SAMMY FERMIN [facility] Screening papanicolaou smear; obtaining, preparing and conveyance of cervical or vaginal smear to laboratory LULA GARRISON [facility] Crisis Intervention Therapy Crisis Intervention Therapy [id number] JOVAN MOORE [facility] Breathalyzer For Blood Alcohol Content Breathalyzer For Blood Alcohol Content 616[address] CHERY GARRISON [facility] Alcohol and/or drug services; case management TORI ANGELO [facility] Behavioral health screening to determine eligibility for admi ion to treatment program KULDEEP NICK [facility] Non-Physician Phone Call To Patient/Provider Brief (5-10min) Non-Physician Phone Call To Patient/Provider Brief (5-10min) [id number] KARISSA WALTERS DoD Waiver services; not otherwise specified (NOS) BITTINGS, MILE CHANDANA [facility] Patient education, not otherwise cla ified, non-physician provider, group, per se ASHLEIGH Luna [facility] Non-Biodegradable Drug Deliv Implant, Removal W/ Insertion Non-Biodegradable Drug Deliv Implant, Removal W/ Insertion [id number] TOMI WASHINGTON [facility] *Papsmear 2019- negative per pt pt stated it was done at [address] dicky Social History Combined list of available smoking, tobacco, and other social history from [facility] of Defense and Veterans Affairs facilities. Social History Type Response Date Comment [facility] e Sex Representation Female (finding) 05/21/2020 Unknown Organization This section is an empty social history section. [facility] Tobacco Exposure to Secondhand Smoke: No. Never-cigarette user Cigarette use:. Never-other tobacco user (not cigarettes) Other Tobacco use:. Ambulatory Pharmacy Sexual Orientation Ambula tory Pharmacy Gender identity Ambulator y Pharmacy Assessment and Plan Combined list of future care activities from Department of Defense and Veterans Affairs facilities (e.g., assessment and plan notes, appointments, orders, and referrals). Additional future care activities may be listed in the Plan of Care section. Result Assessment and Plan Date Source Assessment and Plan Extracted from:Title : AUDIOLOGY NOTE [id number] Author: ART LUNDBERG Date: 12/26/23 Encounter for examination and observation for other specified reasons Hearing WNL. ?Patient educated on proper use of hand formed (Sound Guard) hearing protection insertion and uses in noise. ?Annual HCP review completed today. ?A copy of the Audiogram was given to patient and a copy of the audiogram was scanned into KENA. MARINE/ANNUAL ? Art Argueta.?[facility] Audiology Department [facility], [place], [place] ? Extracted from:Title: MHA/PHA Author: MALIK ONOFRE NP Date: 10/31/23 Encounter for issue of other medical certificate Assessment and Plan Reviewed documentation of height and weight, current medical conditions and deployment related health problems, to include screening for traumatic brain injury exposure, allergies, medications, required immunizations, medical readiness laboratory tests, audiology, and optometry examinations. Completed screenings and provided patient education as appropriate. ? Assessed and reviewed?responses to screening tools. ? AUDIT-C=0 PCL-C=0 PHQ-8=0 ? Prosecuting Attorney (SM)?denies suicidal or homicidal ideations at this time and is not at an elevated risk. At this time no tasking or consults needed.?SM made?aware of [facility] ()?services available, ?[facility], [employer], Walk in , Emergency Room (ER) or 911, Notify chain of command, etc and how to contact them if needed. ? Preventative services reviewed and discussed. Reviewed immunization history and assessed immunization status. Reviewed physical activity. Reviewed sexual health screenings, including HIV screening date. Reviewed readiness labs and examinations needed including recommendation for lipid screening every 5 years beginning at age 35. Compared medications reported by service dog trainer to active medication list in?S Kena/JLV?and any variances were documented.? ? Any complaints or issues identified while conducting the PHA have been addressed and or referred back to the patient's?primary primary care coordinator (PCM)?for care.?SM?advised to follow up with PCM, Behavioral Health, ER/911, or [facility] as needed for continuation of care, and/or further evaluation during exacerbations of physical and/or psychological illness or injury. See PHA document for additional information.? ? 23 minutes of total time spent reviewing records, completing record review, discussing health concerns and preventative health measures with patient. ? Extracted from:Title: tonsil stones Author: CULLEN IBANEZ Date: 10/30/22 1.?Pharyngitis 22 YO AD F presenting with pharyngitis FFD/WWD Likely tonsil stone, neg rapid strep Warm salt water gargles, improve dental hygiene, Cepacol prescribed f/u PRN Will consider ENT consult for tonsillectomy if sx persist or become recurrent Pt agreeable tot tx plan ? Signed: Cullen Ibanez LT/MSC/[employer] Aer[employer] Physician Corn Grinder? RASHEED Shetty? Ordered: benzocaine-menthol topical(Cepacol Sore Throat 15 mg-3.6 mg mucous membrane lozenge), 1 lozenge(s), Oral, every 2 hr, PRN sore throat, # 16 EA, 0 total refill(s), Acute, 10/31/2023, 1 lozenge(s) Oral every 2 hr,PRN:sore throat, Pharmacy: [facility] [Not filled] Rapid Strep A Screen Throat Culture ? Extracted from:Title: cough Author: CULLEN IBANEZ Date: 10/05/22 1.?Bronchitis 21 YO AD F presenting with cough x >1 week Likely bronchitis Prescribed ZPAC and meds for sx relief Rest, hydrate RVP ordered, will f/u pending results SIQ x 48 hours F/u PRN if sx worsen or do not get better Pt agreeable to tx plan ? Signed: Cullen Ibanez LT/MSC/[employer] Aer[employer] Physician Corn Grinder? [employer]? Ordered: oxymetazoline nasal(Afrin 0.05% nasal spray), 2 spray(s), Nostril-Both, BID, # 15 mL, 0 total refill(s), Acute, 2 spray(s) Nostril-Both BID, Pharmacy: [facility] [Not filled] azithromycin(Azithromycin 5 Day Dose Pack 250 mg oral tablet), See instructions, Take 2 tablets today then 1 tablet daily for 4 days., # 6 tab(s), 0 total refill(s), Acute, 10/11/2022, Take 2 tablets today then 1 tablet daily for 4 days., Pharmacy: [facility] [Not filled] guaiFENesin(Mucinex 600 mg oral tablet, extended release), 1 tab(s), Oral, every 12 hr, # 40 tab(s), 0 total refill(s), Acute, 10/06/2023, 1 tab(s) Oral every 12 hr, Pharmacy: [facility] [Not filled] ? Orders: ibuprofen(IBU 800 mg oral tablet), 1 tab(s), Oral, every 8 hr, # 30 tab(s), 0 total refill(s), Acute, 1 tab(s) Oral every 8 hr, Pharmacy: [facility] [Not filled] Respiratory Film Array PCR 2.1 Extracted from:Title: Office Clinic Note Author: SCOTTY YOUSIF RN Date: 09/26/22 Patient has completed the requirements for annual Periodic Health Assessment per [facility] 6120.3 and [facility] 6025.19. MRRS database profile was updated to reflect member's current IMR status. PARTIALLY MEDICALLY READY?member is due for Influenza vaccine. No Medical concerns today No Suicidal or homicidal thoughts Pt denies the use of drug, gambling, and alcohol abuse ? ? ? 1. Since your last Tuberculosis Exposure Risk Assessment, were you exposed to anyone known to have or suspected of having active tuberculosis (i.e., individuals with persistent cough, weight loss, night sweats, and/or fever)?NO ? 2. Since your last Tuberculosis Exposure Risk Assessment or Post-Deployment Health Assessment (DD Form 8697), did you have direct and prolonged contact with any individuals of the following groups: refugees or displaced persons; patients hospitalized with tuberculosis, prisoners, or homeless group home population???NO ? 3a. Have you been to any countries where you have traveled or deployed to since your last Tuberculosis Exposure Risk Assessment???NO ? If any of the following countries are listed, answer question 3c:? [place], [place], [place], [place], [place], [place], [place], [place], [place], [place], [place], [place], [place], [place], [place], [place], [place], [place], [place], [place], [place]. 3b. Have you recently traveled to [facility] for any reason other than as part of a deployment requiring completion of a Post Deployment Health Assessment (PDHA)?NO ? 3c.During this travel, did you have prolonged direct contact with the local population? Prolonged direct contact is generally understood as having been within six feet of a person with a bad continuous cough for at least 8 consecutive hours on a single day, or for a total of at least 15 hours per week of a multi-week stay.?NO ? 4a. Have you recently had a chronic cough lasting more than 2 weeks???NO ? 4b. If you marked YES to chronic cough, did you have any of the following symptoms at the same time? Fever, cough up blood, unexplained weight loss, or night sweats.?NO ? Extracted from:Title: Projay F/u Author: CULLEN IBANEZ Date: 09/20/22 1.?Adjustment disorder, unspecified 21 YO AD F presenting for f/u on depression/anxiety FFD/WWD Doing well on Prozac 20MG daily, recommended to switch to nightly to help with sleep No SI or HI F/u in 1 month for re-evaluation or sooner if needed, can do virtual appointment for f/u Pt agreeable to tx plan ? Signed: Cullen Ibanez LT/MSC/[employer] Aer[employer] Physician Corn Grinder? RASHEED Shetty? Orders: FLUoxetine(PROzac 20 mg oral capsule), 1 cap(s), Oral, Daily, # 90 cap(s), 3 total refill(s), Maintenance, 1 cap(s) Oral Daily, Pharmacy: [facility] Extracted from:Title: Recurrent UTI Author: CULLEN IBANEZ Date: 08/02/22 1.?Urinary tract infection 21 y/o AD female presenting for recurrent UTI FFD/WWD Prescribed 14 day course or PO antibiotics No red flag sx Patient will f/u in 4-5 days if sx persist or worsen Pt agreeable to tx plan ? Ordered: nitrofurantoin(Macrobid 100 mg oral capsule), 1 cap(s), Oral, BID, X 5 days, # 10 cap(s), 0 total refill(s), Acute, 08/07/2022, 1 cap(s) Oral BID,x5 days, Pharmacy: [facility] [Not filled] nitrofurantoin(Macrobid 100 mg oral capsule), 1 cap(s), Oral, BID, X 14 days, # 28 cap(s), 0 total refill(s), Acute, 08/16/2022, 1 cap(s) Oral BID,x14 days, Pharmacy: [facility] [Not filled] phenazopyridine(phenazopyridine 95 mg oral tablet), 1 tab(s), Oral, TID, with food, X 2 days, # 6 tab(s), 0 total refill(s), Acute, 1 tab(s) Oral TID,x2 days,Instr:with food, Pharmacy: [facility] [Not filled] ? Orders: GC and Chlamydia Screen Urinalysis with Microscopic and Culture if Indicated Extracted from:Title: Office Clinic Note Author: BENITO JON T Date: 07/20/22 1.?Urinary tract infection Dysuria 21 year old Female with an extensive history of UTIs presents with UTI like symptoms. Current reported symptoms and past history are suggestive of a current UTI. ? - Urine Culture ordered - Urine Dipstick ordered - Macrobid 100mg ordered - Phenazolepyridine Ordered ? Encounter performed by: [facility] FredoyelenaBenito ? Extracted from:Title: STI check Author: OTILIO KAT Date: 04/12/22 1.?Exposure to chlamydia This is a 21-year-old female that was possibly exposed to chlamydial infection. ?She is asymptomatic at this time. ?We did order some labs for follow-up. ?Patient has been advised that she wanted to attest to. ?Recommend greater than 30 days for treatment. ?We will give her Rocephin clinic?for total treatment of possible gonorrhea will also?get her started on doxycycline. ?Patient had no further questions at this time. ? Plan: Doxycycline 100 mg twice daily Rocephin 500 mg?IM given in clinic by nurse Labs ordered Follow-up for test to cure?per patient preference. ? Ordered: doxycycline(doxycycline hyclate 100 mg oral capsule), 1 cap(s), Oral, BID, X 7 days, # 14 cap(s), 0 total refill(s), Acute, 04/19/2022, 1 cap(s) Oral BID,x7 days, Pharmacy: [facility] [Last filled 04/12/22] Beta HCG Qualitative, Urine GC and Chlamydia Screen UA Dipstick ? Extracted from:Title: Office Clinic Note Author: JEFF BROWN MD Date: 02/20/22 Anxiety depression Symptoms improved with SSRI and counseling. Continue treatment plan. Followup in 3months or earlier prn. Ordered: FLUoxetine(PROzac 10 mg oral capsule), 1 cap(s), Oral, Daily, # 90 cap(s), 0 total refill(s), Maintenance, 1 cap(s) Oral Daily, Pharmacy: [facility] [Not filled] ? Extracted from:Title: Office Clinic Note Author: JEFF BROWN MD Date: 01/23/22 1.?Anxiety depression ?Pateint meets clinical criteria to start SSRI. Recommend continued psychology services. Counseled on medication use and side effects. Discussed expected benefit after 6 weeks of medication use and possible need to titrate dose in future. F/u in 4 weeks or prn. ? Reviewed safety plan. ? Ordered: FLUoxetine(PROzac 10 mg oral capsule), See Instructions, Oral, take one capsule by mouth every day for 7 days, then take two capsules every day, # 53 cap(s), 0 total refill(s), Maintenance, 30 days, take one capsule by mouth every day for 7 days, then take two capsules every day, Pharmacy:... ? Extracted from:Title: RYEES SHETTY Author: ARTURO ARRIAGA, OD Date: 07/05/21 1.?Migraine with aura ?Migraine with Aura- no ocular pathology with dilated eye exam OU. Pt ed to continue care with PCM. ? Ordered: Determination Refractive State 94620 Fitting Spectacles Xcpt Aphakia Monofocal 56244 Ophthalmological Medical Xm&Eval Compre New Pt 1/> Vst 81204 ? 2.?Regular astigmatism of both eyes ?Final SpecRx= Manifest Refraction. Glasses ordered and written SpecRx given to patient.?Pt ed on adaptation period ? 02/23/[address] [place] [address] Assessment and Plan Extracted from:Title : AUDIOLOGY NOTE [id number] Author: ART LUNDBERG Date: 12/26/23 Encounter for examination and observation for other specified reasons Hearing WNL. ?Patient educated on proper use of hand formed (Sound Guard) hearing protection insertion and uses in noise. ?Annual HCP review completed today. ?A copy of the Audiogram was given to patient and a copy of the audiogram was scanned into KENA. MARINE/ANNUAL ? Art Argueta.?[facility] [employer] Audiology Department [facility], [place], [place] ? Extracted from:Title: MHA/PHA Author: MALIK ONOFRE NP Date: 10/31/23 Encounter for issue of other medical certificate Assessment and Plan Reviewed documentation of height and weight, current medical conditions and deployment related health problems, to include screening for traumatic brain injury exposure, allergies, medications, required immunizations, medical readiness laboratory tests, audiology, and optometry examinations. Completed screenings and provided patient education as appropriate. ? Assessed and reviewed?responses to screening tools. ? AUDIT-C=0 PCL-C=0 PHQ-8=0 ? Prosecuting Attorney (SM)?denies suicidal or homicidal ideations at this time and is not at an elevated risk. At this time no tasking or consults needed.?SM made?aware of [facility] ()?services available, ?[facility], [employer], Walk in , Emergency Room (ER) or 911, Notify chain of command, etc and how to contact them if needed. ? Preventative services reviewed and discussed. Reviewed immunization history and assessed immunization status. Reviewed physical activity. Reviewed sexual health screenings, including HIV screening date. Reviewed readiness labs and examinations needed including recommendation for lipid screening every 5 years beginning at age 35. Compared medications reported by service dog trainer to active medication list in?S Ekna/JLV?and any variances were documented.? ? Any complaints or issues identified while conducting the PHA have been addressed and or referred back to the patient's?primary primary care coordinator (PCM)?for care.?SM?advised to follow up with PCM, Behavioral Health, ER/911, or [facility] as needed for continuation of care, and/or further evaluation during exacerbations of physical and/or psychological illness or injury. See PHA document for additional information.? ? 23 minutes of total time spent reviewing records, completing record review, discussing health concerns and preventative health measures with patient. ? Extracted from:Title: tonsil stones Author: CULLEN IBANEZ Date: 10/30/22 1.?Pharyngitis 22 YO AD F presenting with pharyngitis FFD/WWD Likely tonsil stone, neg rapid strep Warm salt water gargles, improve dental hygiene, Cepacol prescribed f/u PRN Will consider ENT consult for tonsillectomy if sx persist or become recurrent Pt agreeable tot tx plan ? Signed: Cullen Ibanez LT/MSC/[employer] Aer[employer] Physician Corn Grinder? RASHEED Shetty? Ordered: benzocaine-menthol topical(Cepacol Sore Throat 15 mg-3.6 mg mucous membrane lozenge), 1 lozenge(s), Oral, every 2 hr, PRN sore throat, # 16 EA, 0 total refill(s), Acute, 10/31/2023, 1 lozenge(s) Oral every 2 hr,PRN:sore throat, Pharmacy: [facility] [Not filled] Rapid Strep A Screen Throat Culture ? Extracted from:Title: cough Author: CULLEN IBANEZ Date: 10/05/22 1.?Bronchitis 21 YO AD F presenting with cough x >1 week Likely bronchitis Prescribed ZPAC and meds for sx relief Rest, hydrate RVP ordered, will f/u pending results SIQ x 48 hours F/u PRN if sx worsen or do not get better Pt agreeable to tx plan ? Signed: Cullen Ibanez LT/MSC/[employer] Aer[employer] Physician Corn Grinder? RASHEED Shetty? Ordered: oxymetazoline nasal(Afrin 0.05% nasal spray), 2 spray(s), Nostril-Both, BID, # 15 mL, 0 total refill(s), Acute, 2 spray(s) Nostril-Both BID, Pharmacy: [facility] [Not filled] azithromycin(Azithromycin 5 Day Dose Pack 250 mg oral tablet), See instructions, Take 2 tablets today then 1 tablet daily for 4 days., # 6 tab(s), 0 total refill(s), Acute, 10/11/2022, Take 2 tablets today then 1 tablet daily for 4 days., Pharmacy: [facility] [Not filled] guaiFENesin(Mucinex 600 mg oral tablet, extended release), 1 tab(s), Oral, every 12 hr, # 40 tab(s), 0 total refill(s), Acute, 10/06/2023, 1 tab(s) Oral every 12 hr, Pharmacy: [facility] [Not filled] ? Orders: ibuprofen(IBU 800 mg oral tablet), 1 tab(s), Oral, every 8 hr, # 30 tab(s), 0 total refill(s), Acute, 1 tab(s) Oral every 8 hr, Pharmacy: [facility] [Not filled] Respiratory Film Array PCR 2.1 Extracted from:Title: Office Clinic Note Author: SCOTTY YOUSIF RN Date: 09/26/22 Patient has completed the requirements for annual Periodic Health Assessment per [facility] 6120.3 and [facility] 6025.19. MRRS database profile was updated to reflect member's current IMR status. PARTIALLY MEDICALLY READY?member is due for Influenza vaccine. No Medical concerns today No Suicidal or homicidal thoughts Pt denies the use of drug, gambling, and alcohol abuse ? ? ? 1. Since your last Tuberculosis Exposure Risk Assessment, were you exposed to anyone known to have or suspected of having active tuberculosis (i.e., individuals with persistent cough, weight loss, night sweats, and/or fever)?NO ? 2. Since your last Tuberculosis Exposure Risk Assessment or Post-Deployment Health Assessment (DD Form 5807), did you have direct and prolonged contact with any individuals of the following groups: refugees or displaced persons; patients hospitalized with tuberculosis, prisoners, or homeless group home population???NO ? 3a. Have you been to any countries where you have traveled or deployed to since your last Tuberculosis Exposure Risk Assessment???NO ? If any of the following countries are listed, answer question 3c:? [place], [place], [place], [place], [place], [place], [place], [place], [place], [place], [place], [place], [place], [place], [place], [place], [place], [place], [place], [place], [place]. 3b. Have you recently traveled to [facility] for any reason other than as part of a deployment requiring completion of a Post Deployment Health Assessment (PDHA)?NO ? 3c.During this travel, did you have prolonged direct contact with the local population? Prolonged direct contact is generally understood as having been within six feet of a person with a bad continuous cough for at least 8 consecutive hours on a single day, or for a total of at least 15 hours per week of a multi-week stay.?NO ? 4a. Have you recently had a chronic cough lasting more than 2 weeks???NO ? 4b. If you marked YES to chronic cough, did you have any of the following symptoms at the same time? Fever, cough up blood, unexplained weight loss, or night sweats.?NO ? Extracted from:Title: Prozac F/u Author: CULLEN IBANEZ Date: 09/20/22 1.?Adjustment disorder, unspecified 21 YO AD F presenting for f/u on depression/anxiety FFD/WWD Doing well on Prozac 20MG daily, recommended to switch to nightly to help with sleep No SI or HI F/u in 1 month for re-evaluation or sooner if needed, can do virtual appointment for f/u Pt agreeable to tx plan ? Signed: Cullen Ibanez LT/MSC/[employer] Aer[employer] Physician Corn Grinder? RASHEED Shetty? Orders: FLUoxetine(PROzac 20 mg oral capsule), 1 cap(s), Oral, Daily, # 90 cap(s), 3 total refill(s), Maintenance, 1 cap(s) Oral Daily, Pharmacy: [facility] Extracted from:Title: Recurrent UTI Author: CULLEN IBANEZ Date: 08/02/22 1.?Urinary tract infection 21 y/o AD female presenting for recurrent UTI FFD/WWD Prescribed 14 day course or PO antibiotics No red flag sx Patient will f/u in 4-5 days if sx persist or worsen Pt agreeable to tx plan ? Ordered: nitrofurantoin(Macrobid 100 mg oral capsule), 1 cap(s), Oral, BID, X 5 days, # 10 cap(s), 0 total refill(s), Acute, 08/07/2022, 1 cap(s) Oral BID,x5 days, Pharmacy: [facility] [Not filled] nitrofurantoin(Macrobid 100 mg oral capsule), 1 cap(s), Oral, BID, X 14 days, # 28 cap(s), 0 total refill(s), Acute, 08/16/2022, 1 cap(s) Oral BID,x14 days, Pharmacy: [facility] [Not filled] phenazopyridine(phenazopyridine 95 mg oral tablet), 1 tab(s), Oral, TID, with food, X 2 days, # 6 tab(s), 0 total refill(s), Acute, 1 tab(s) Oral TID,x2 days,Instr:with food, Pharmacy: [facility] [Not filled] ? Orders: GC and Chlamydia Screen Urinalysis with Microscopic and Culture if Indicated Extracted from:Title: Office Clinic Note Author: BENITO JON Date: 07/20/22 1.?Urinary tract infection Dysuria 21 year old Female with an extensive history of UTIs presents with UTI like symptoms. Current reported symptoms and past history are suggestive of a current UTI. ? - Urine Culture ordered - Urine Dipstick ordered - Macrobid 100mg ordered - Phenazolepyridine Ordered ? Encounter performed by: [facility]) Benito Jon ? Extracted from:Title: STI check Author: OTILIO KAT Date: 04/12/22 1.?Exposure to chlamydia This is a 21-year-old female that was possibly exposed to chlamydial infection. ?She is asymptomatic at this time. ?We did order some labs for follow-up. ?Patient has been advised that she wanted to attest to. ?Recommend greater than 30 days for treatment. ?We will give her Rocephin clinic?for total treatment of possible gonorrhea will also?get her started on doxycycline. ?Patient had no further questions at this time. ? Plan: Doxycycline 100 mg twice daily Rocephin 500 mg?IM given in clinic by nurse Labs ordered Follow-up for test to cure?per patient preference. ? Ordered: doxycycline(doxycycline hyclate 100 mg oral capsule), 1 cap(s), Oral, BID, X 7 days, # 14 cap(s), 0 total refill(s), Acute, 04/19/2022, 1 cap(s) Oral BID,x7 days, Pharmacy: [facility] [Last filled 04/12/22] Beta HCG Qualitative, Urine GC and Chlamydia Screen UA Dipstick ? Extracted from:Title: Office Clinic Note Author: JEFF BROWN MD Date: 02/20/22 Anxiety depression Symptoms improved with SSRI and counseling. Continue treatment plan. Followup in 3months or earlier prn. Ordered: FLUoxetine(PROzac 10 mg oral capsule), 1 cap(s), Oral, Daily, # 90 cap(s), 0 total refill(s), Maintenance, 1 cap(s) Oral Daily, Pharmacy: [facility] [Not filled] ? Extracted from:Title: Office Clinic Note Author: JEFF BROWN MD Date: 01/23/22 1.?Anxiety depression ?Pateint meets clinical criteria to start SSRI. Recommend continued psychology services. Counseled on medication use and side effects. Discussed expected benefit after 6 weeks of medication use and possible need to titrate dose in future. F/u in 4 weeks or prn. ? Reviewed safety plan. ? Ordered: FLUoxetine(PROzac 10 mg oral capsule), See Instructions, Oral, take one capsule by mouth every day for 7 days, then take two capsules every day, # 53 cap(s), 0 total refill(s), Maintenance, 30 days, take one capsule by mouth every day for 7 days, then take two capsules every day, Pharmacy:... ? Extracted from:Title: REYES SHETTY Author: ARTURO ARRIAGA, OD Date: 07/05/21 1.?Migraine with aura ?Migraine with Aura- no ocular pathology with dilated eye exam OU. Pt ed to continue care with PCM. ? Ordered: Determination Refractive State 23207 Fitting Spectacles Xcpt Aphakia Monofocal 08559 Ophthalmological Medical Xm&Eval Compre New Pt 1/> Vst [id number] ? 2.?Regular astigmatism of both eyes ?Final SpecRx= Manifest Refraction. Glasses ordered and written SpecRx given to patient.?Pt ed on adaptation period ? 02/23/[address] [place] [address] Assessment and Plan Extracted from:Title : AUDIOLOGY NOTE [id number] Author: ART LUNDBERG Date: 12/26/23 Encounter for examination and observation for other specified reasons Hearing WNL. ?Patient educated on proper use of hand formed (Sound Guard) hearing protection insertion and uses in noise. ?Annual HCP review completed today. ?A copy of the Audiogram was given to patient and a copy of the audiogram was scanned into KENA. MARINE/ANNUAL ? Art Argueta.?[place] Hearing Collar Tailor Audiology Department [facility] Medical Readiness and Training [facility], [place], [place] ? Extracted from:Title: MHA/PHA Author: MALIK ONOFRE NP Date: 10/31/23 Encounter for issue of other medical certificate Assessment and Plan Reviewed documentation of height and weight, current medical conditions and deployment related health problems, to include screening for traumatic brain injury exposure, allergies, medications, required immunizations, medical readiness laboratory tests, audiology, and optometry examinations. Completed screenings and provided patient education as appropriate. ? Assessed and reviewed?responses to screening tools. ? AUDIT-C=0 PCL-C=0 PHQ-8=0 ? Prosecuting Attorney (SM)?denies suicidal or homicidal ideations at this time and is not at an elevated risk. At this time no tasking or consults needed.?SM made?aware of [facility] ()?services available, ?[facility], [employer], Walk in , Emergency Room (ER) or 911, Notify chain of command, etc and how to contact them if needed. ? Preventative services reviewed and discussed. Reviewed immunization history and assessed immunization status. Reviewed physical activity. Reviewed sexual health screenings, including HIV screening date. Reviewed readiness labs and examinations needed including recommendation for lipid screening every 5 years beginning at age 35. Compared medications reported by service dog trainer to active medication list in?[facility]?and any variances were documented.? ? Any complaints or issues identified while conducting the PHA have been addressed and or referred back to the patient's?primary primary care coordinator (PCM)?for care.?SM?advised to follow up with PCM, Behavioral Health, ER/911, or [facility] as needed for continuation of care, and/or further evaluation during exacerbations of physical and/or psychological illness or injury. See PHA document for additional information.? ? 23 minutes of total time spent reviewing records, completing record review, discussing health concerns and preventative health measures with patient. ? Extracted from:Title: tonsil stones Author: CULLEN IBANEZ Date: 10/30/22 1.?Pharyngitis 22 YO AD F presenting with pharyngitis FFD/WWD Likely tonsil stone, neg rapid strep Warm salt water gargles, improve dental hygiene, Cepacol prescribed f/u PRN Will consider ENT consult for tonsillectomy if sx persist or become recurrent Pt agreeable tot tx plan ? Signed: Cullen Ibanez LT/MSC/USN Aerospace Physician Corn Grinder? RASHEED Shetty? Ordered: benzocaine-menthol topical(Cepacol Sore Throat 15 mg-3.6 mg mucous membrane lozenge), 1 lozenge(s), Oral, every 2 hr, PRN sore throat, # 16 EA, 0 total refill(s), Acute, 10/31/2023, 1 lozenge(s) Oral every 2 hr,PRN:sore throat, Pharmacy: [facility] [Not filled] Rapid Strep A Screen Throat Culture ? Extracted from:Title: cough Author: CULLEN IBANEZ Date: 10/05/22 1.?Bronchitis 21 YO AD F presenting with cough x >1 week Likely bronchitis Prescribed ZPAC and meds for sx relief Rest, hydrate RVP ordered, will f/u pending results SIQ x 48 hours F/u PRN if sx worsen or do not get better Pt agreeable to tx plan ? Signed: Cullen Ibanez LT/MSC/USN [facility] Physician Corn Grinder? RASHEED Shetty? Ordered: oxymetazoline nasal(Afrin 0.05% nasal spray), 2 spray(s), Nostril-Both, BID, # 15 mL, 0 total refill(s), Acute, 2 spray(s) Nostril-Both BID, Pharmacy: [facility] [Not filled] azithromycin(Azithromycin 5 Day Dose Pack 250 mg oral tablet), See instructions, Take 2 tablets today then 1 tablet daily for 4 days., # 6 tab(s), 0 total refill(s), Acute, 10/11/2022, Take 2 tablets today then 1 tablet daily for 4 days., Pharmacy: [facility] [Not filled] guaiFENesin(Mucinex 600 mg oral tablet, extended release), 1 tab(s), Oral, every 12 hr, # 40 tab(s), 0 total refill(s), Acute, 10/06/2023, 1 tab(s) Oral every 12 hr, Pharmacy: [facility] [Not filled] ? Orders: ibuprofen(IBU 800 mg oral tablet), 1 tab(s), Oral, every 8 hr, # 30 tab(s), 0 total refill(s), Acute, 1 tab(s) Oral every 8 hr, Pharmacy: [facility] [Not filled] Respiratory Film Array PCR 2.1 Extracted from:Title: Office Clinic Note Author: SCOTTY YOUSIF RN Date: 09/26/22 Patient has completed the requirements for annual Periodic Health Assessment per [facility] 6120.3 and [facility] 6025.19. MRRS database profile was updated to reflect member's current IMR status. PARTIALLY MEDICALLY READY?member is due for Influenza vaccine. No Medical concerns today No Suicidal or homicidal thoughts Pt denies the use of drug, gambling, and alcohol abuse ? ? ? 1. Since your last Tuberculosis Exposure Risk Assessment, were you exposed to anyone known to have or suspected of having active tuberculosis (i.e., individuals with persistent cough, weight loss, night sweats, and/or fever)?NO ? 2. Since your last Tuberculosis Exposure Risk Assessment or Post-Deployment Health Assessment (DD Form 2079), did you have direct and prolonged contact with any individuals of the following groups: refugees or displaced persons; patients hospitalized with tuberculosis, prisoners, or homeless group home population???NO ? 3a. Have you been to any countries where you have traveled or deployed to since your last Tuberculosis Exposure Risk Assessment???NO ? If any of the following countries are listed, answer question 3c:? [place], [place], [place], [place], [place], [place], [place], [place], [place], [place], [place], [place], [place], [place], [place], [place], [place], [place], [place], [place], [place]. 3b. Have you recently traveled to [facility] for any reason other than as part of a deployment requiring completion of a Post Deployment Health Assessment (PDHA)?NO ? 3c.During this travel, did you have prolonged direct contact with the local population? Prolonged direct contact is generally understood as having been within six feet of a person with a bad continuous cough for at least 8 consecutive hours on a single day, or for a total of at least 15 hours per week of a multi-week stay.?NO ? 4a. Have you recently had a chronic cough lasting more than 2 weeks???NO ? 4b. If you marked YES to chronic cough, did you have any of the following symptoms at the same time? Fever, cough up blood, unexplained weight loss, or night sweats.?NO ? Extracted from:Title: Prozac F/u Author: CULLEN IBANEZ Date: 09/20/22 1.?Adjustment disorder, unspecified 21 YO AD F presenting for f/u on depression/anxiety FFD/WWD Doing well on Prozac 20MG daily, recommended to switch to nightly to help with sleep No SI or HI F/u in 1 month for re-evaluation or sooner if needed, can do virtual appointment for f/u Pt agreeable to tx plan ? Signed: Cullen Ibanez LT/MSC/USN Aerospace Physician Corn Grinder? RASHEED Shetty? Orders: FLUoxetine(PROzac 20 mg oral capsule), 1 cap(s), Oral, Daily, # 90 cap(s), 3 total refill(s), Maintenance, 1 cap(s) Oral Daily, Pharmacy: [facility] Extracted from:Title: Recurrent UTI Author: CULLEN IBANEZ Date: 08/02/22 1.?Urinary tract infection 21 y/o AD female presenting for recurrent UTI FFD/WWD Prescribed 14 day course or PO antibiotics No red flag sx Patient will f/u in 4-5 days if sx persist or worsen Pt agreeable to tx plan ? Ordered: nitrofurantoin(Macrobid 100 mg oral capsule), 1 cap(s), Oral, BID, X 5 days, # 10 cap(s), 0 total refill(s), Acute, 08/07/2022, 1 cap(s) Oral BID,x5 days, Pharmacy: [facility] [Not filled] nitrofurantoin(Macrobid 100 mg oral capsule), 1 cap(s), Oral, BID, X 14 days, # 28 cap(s), 0 total refill(s), Acute, 08/16/2022, 1 cap(s) Oral BID,x14 days, Pharmacy: [facility] [Not filled] phenazopyridine(phenazopyridine 95 mg oral tablet), 1 tab(s), Oral, TID, with food, X 2 days, # 6 tab(s), 0 total refill(s), Acute, 1 tab(s) Oral TID,x2 days,Instr:with food, Pharmacy: [facility] [Not filled] ? Orders: GC and Chlamydia Screen Urinalysis with Microscopic and Culture if Indicated Extracted from:Title: Office Clinic Note Author: BENITO JON Date: 07/20/22 1.?Urinary tract infection Dysuria 21 year old Female with an extensive history of UTIs presents with UTI like symptoms. Current reported symptoms and past history are suggestive of a current UTI. ? - Urine Culture ordered - Urine Dipstick ordered - Macrobid 100mg ordered - Phenazolepyridine Ordered ? Encounter performed by: [facility]) Benito Jon ? Extracted from:Title: STI check Author: OTILIO KAT Date: 04/12/22 1.?Exposure to chlamydia This is a 21-year-old female that was possibly exposed to chlamydial infection. ?She is asymptomatic at this time. ?We did order some labs for follow-up. ?Patient has been advised that she wanted to attest to. ?Recommend greater than 30 days for treatment. ?We will give her Rocephin clinic?for total treatment of possible gonorrhea will also?get her started on doxycycline. ?Patient had no further questions at this time. ? Plan: Doxycycline 100 mg twice daily Rocephin 500 mg?IM given in clinic by nurse Labs ordered Follow-up for test to cure?per patient preference. ? Ordered: doxycycline(doxycycline hyclate 100 mg oral capsule), 1 cap(s), Oral, BID, X 7 days, # 14 cap(s), 0 total refill(s), Acute, 04/19/2022, 1 cap(s) Oral BID,x7 days, Pharmacy: [facility] [Last filled 04/12/22] Beta HCG Qualitative, Urine GC and Chlamydia Screen UA Dipstick ? Extracted from:Title: Office Clinic Note Author: JEFF BROWN MD Date: 02/20/22 Anxiety depression Symptoms improved with SSRI and counseling. Continue treatment plan. Followup in 3months or earlier prn. Ordered: FLUoxetine(PROzac 10 mg oral capsule), 1 cap(s), Oral, Daily, # 90 cap(s), 0 total refill(s), Maintenance, 1 cap(s) Oral Daily, Pharmacy: [facility] [Not filled] ? Extracted from:Title: Office Clinic Note Author: JEFF BROWN MD Date: 01/23/22 1.?Anxiety depression ?Pateint meets clinical criteria to start SSRI. Recommend continued psychology services. Counseled on medication use and side effects. Discussed expected benefit after 6 weeks of medication use and possible need to titrate dose in future. F/u in 4 weeks or prn. ? Reviewed safety plan. ? Ordered: FLUoxetine(PROzac 10 mg oral capsule), See Instructions, Oral, take one capsule by mouth every day for 7 days, then take two capsules every day, # 53 cap(s), 0 total refill(s), Maintenance, 30 days, take one capsule by mouth every day for 7 days, then take two capsules every day, Pharmacy:... ? Extracted from:Title: REYES SHETTY Author: ARTURO ARRIAGA, OD Date: 07/05/21 1.?Migraine with aura ?Migraine with Aura- no ocular pathology with dilated eye exam OU. Pt ed to continue care with PCM. ? Ordered: Determination Refractive State 77886 Fitting Spectacles Xcpt Aphakia Monofocal 37813 Ophthalmological Medical Xm&Eval Compre New Pt 1/> Vst 88672 ? 2.?Regular astigmatism of both eyes ?Final SpecRx= Manifest Refraction. Glasses ordered and written SpecRx given to patient.?Pt ed on adaptation period ? 02/23/2025 [id number] Functional Status Combined list of recent functional and cognitive assessments recorded at [employer] of [employer] and [employer] Affairs (VA).VA Functional Mertens Measurement (FIM) Scale: 1 = Total Assistance (Subject = 0% +), 2 = Maximal Assistance (Subject = 25% +), 3 = Moderate Assistance (Subject = 50% +), 4 = Minimal Assistance (Subject = 75% +), 5 = Supervision, 6 = Modified Mertens (Device), 7 = Complete Mertens (Timely, Safely). Assessment Date/Time Source Assessment Type Assessment Skill Assessment Score Assessment Details No data available for this section
== END 2025-02-23 10:04 | disposition home or self-care (01) ==
LOC: HO.HMCH 09:29
PROVIDERS: Visit Provider Internal Medicine
DX: Z00.00 Encounter for general adult medical examination without abnormal findings (principal); F32.0 Major depressive disorder, single episode, mild; N92.6 Irregular menstruation, unspecified; F98.8 Other specified behavioral and emotional disorders with onset usually occurring in childhood and adolescence; Z23 Encounter for immunization

== ENCOUNTER → 2025-02-23 09:28 | Outpatient (BNVA) | payer OTHER, SELFPAY | PROVIDERS: Visit Provider Internal Medicine | DX: Z00.00 Encounter for general adult medical examination without abnormal findings (principal); Z23 Encounter for immunization; F32.0 Major depressive disorder, single episode, mild; N92.6 Irregular menstruation, unspecified; F98.8 Other specified behavioral and emotional disorders with onset usually occurring in childhood and adolescence | CPT/HCPCS: 90471; 90715; 96127; 99212 ==

== ENCOUNTER 2025-07-23 15:35 | Outpatient (AMB) | payer OTHER, SELFPAY ==
--- NOTE | 2025-07-23 15:40 | A.OFFVIS_ITS ---
Vital Signs 07/23/25 15:44 Height 5 ft 2 in Weight 169 lb BMI 30.9 BP 110/71 Intake Visit Reasons: irregular menses/Internal referral Medicare Sales Executive Required: No Information Interpreted: non-clinical & clinical Staff Air Tactical Officer: Staff Air Tactical Officer Present (Thea DOMÍNGUEZ) Accompanied by: Self / Same As Patient Allergies No Known Allergies Allergy (Verified 07/23/25 15:45) Is last menstrual period known: Yes HPI Comments Details: Presenting complaining of irregular menstrual cycle over the last few months. The patient had Nexplanon inserted in 2020 Last Pap smear was a year ago, no results available was abnormal but biopsy was negative according to the patient, no records avail [facility] Medical History (Updated 07/23/25 @ 16:00 by Daren Holliday MD) History of abnormal cervical Pap smear Suicidal ideation MDD (major depressive disorder), recurrent episode, severe Surgical History No pertinent past surgical history Family History Mother Hypertension Father Hypertension Diabetes Social History (Updated 07/23/25 @ 15:47 by Thea Carrizales CMA) Household Members: Spouse Housing: Apartment Do you presently have visiting nurse or other home services: No Alcohol intake: current Alcohol intake frequency: holidays/special occasions only Patient Tobacco Use Status: Never used Tobacco e-Cigarette/Vaping Use: Currently Using Second Hand Smoke Exposure: No Use of substances other than those prescribed or required for medical reasons: No service: Yes ([employer]) Current occupational status: employed and student Current occupation: [employer] Current occupational exposures/hazards: No Sexually active: Yes Sexual orientation: Straight/Heterosexual Gender identity: Female Cognitive needs: No Hearing needs: No Vision needs: No Female Reproductive History Menstrual control method: implanted Total pregnancies: 0 Review of Systems Const All systems reviewed & are unremarkable except as noted in HPI and below Card Reports as per HPI Resp Reports as per HPI GI Reports as per HPI and Reports no additional complaints Reports as per HPI Physical Exam Vital Signs: Last Vital Signs BP 110/71 07/23/25 15:44 BMI result Body Mass Index 30.9 Const General: cooperative, healthy appearing and comfortable Chest Chest palpation & inspection: normal inspection of the chest and normal palpation of entire chest wall Breast/axilla inspection: normal inspection of the breasts and normal inspection of the axillae Breast/axilla palpation: normal palpation of the breasts, normal palpation of the axillae and no axillary lymphadenopathy Resp Effort & Inspection: normal respiratory effort Auscultation: clear to auscultation bilaterally Percussion: percussion normal Cardio Palpation: normal PMI Rate: regular rate Rhythm: regular rhythm Heart sounds: no murmurs and no rubs Peripheral pulses: Peripheral pulses 2+ throughout GI Inspection: Yes normal to inspection Palpation (GI): Soft to palpation, nontender, no guarding, not rigid and No hepatosplenomegaly present Percussion: Yes normal to percussion Auscultation: normal bowel sounds Rectal Exam - Female: deferred General: Yes bladder normal to palpation External Female Exam: No lesion Speculum Exam - Vagina: normal appearance of the vagina, normal palpation, normal vaginal discharge and not erythematous Speculum Exam - Cervix: normal appearance of the cervix and normal palpation Bimanual exam- vagina & uterus: normal bimanual exam, normal palpation, uterine size normal, bladder normal to palpation, consistency normal and normal palpation Bimanual Exam- Adnexa, other: normal adnexae, no masses and no tenderness Results AMB Test Urine AMB Test Urine Negative Last Edit by Thea Carrizales CMA on 15:50 Results Reviewed Results Reviewed: Laboratory Last Values Tst Clinic Negative 07/23/25 15:49 Assessment & Plan Assessment & Plan (1) Abnormal uterine bleeding (AUB): Code(s): N93.9 - Abnormal uterine and vaginal bleeding, unspecified Category: Medical Plan: Pap smear done, GC and chlamydia taken CBC, TSH, HCG, and pelvic ultrasound ordered. Discussed with the patient the different causes of abnormal bleeding including thyroid disorders, uterine and ovarian pathology, and other potential causes. Discussed with the patient the work up including CBC (to r/o anemia), TSH, pelvic Ultrasound. All questions answered and the patient verbalized understanding. Instructed the patient to schedule an appointment for an endometrial biopsy in 2 weeks. (2) Nexplanon in place: Comment: inserted in 2020 Code(s): Z97.5 - Presence of (intrauterine) contraceptive device Category: Social Hx Plan: Explained to the patient Nexplanon is , use a backup method for control, schedule an appointment for removal and discussion of different options of control within a week (3) History of abnormal cervical Pap smear: Comment: 2023, biopsy negative no records available Code(s): Z87.42 - Personal history of other diseases of the female genital tract Category: Medical Plan: Pap smear repeated will check the results and treat accordingly Orders: Orders Complete Blood Count no Diff Today N93.9 - Abnormal uterine and vaginal bleeding, unspecified AMB HCG Urine Test Today Z32.02 - Encounter for test, result negative TSH reflex Free T4 Today N93.9 - Abnormal uterine and vaginal bleeding, unspecified HCG Quantitative Today N93.9 - Abnormal uterine and vaginal bleeding, unspecified US pelvic and transvaginal Today N93.9 - Abnormal uterine and vaginal bleeding, unspecified Coding Level of Care Code New Pt Level 3 (62336) Diagnoses Abnormal uterine bleeding (AUB) N93.[address] Z97.5 History of abnormal cervical Pap smear Z87.42
[2025-07-23 15:44] VITALS: BP 110/71; BMI 30.9
--- OUTSIDE RECORDS SUMMARY | 2025-07-23 18:25 | XMS_ITS | Clinical Summary ---
[place] [address] Care Team Providers Care Dietetics Teacher Name Role Phone OdellRocio aragon Tito MOSELEY Primary Care Provider [phone] Allergies No known active allergies Medications No known medications Active Problems No known active problems Social History Tobacco Use Types Packs/Day Years Used Date Smoking Tobacco: Never Assessed Comments Unknown Sex and Gender Information Value Date Recorded Sex Assigned at Not on file Legal Sex Female 3:20 PM EDT Gender Identity Not on file Sexual Orientation Not on file Plan of Treatment Health Maintenance Due Date Last Done Comments HPV vaccine (1 - 3-dose series) 2013 HIV screen 2016 Hepatitis C Screening 2016 Hepatitis B vaccine (0-59 yrs) and Risk (1) 2017 Tetanus/Diphtheria/Pertussis Vaccines (1 - Tdap) 10/20 PAP Smear 2019 Covid-19 Vaccine (1 - 2024- season) 2025 Influenza (Flu) vaccine (1 o f 1 - Influenza standard series) 05/18/2025 Insurance MEDICAID [place] Care Teams Dietetics Teacher Relationship Specialty Start Date End Date Rocio Bain APRN PCP - General 05/20/13
--- OUTSIDE RECORDS SUMMARY | 2025-07-23 18:25 | XMS_ITS ---
Author Name [facility] Organization Unknown History of Medication Use Medication Directions Dispensed Refills Start Date End Date Stat us prednisone 07/01/2025 active Pyridium 05/10/2025 active Macrobid 05/10/2025 active Encounters Encounter Type Encounter Reason Primary Diagnosis Location Date Ambulatory TBE Allergic ur[facility] 07/01/2025 Care Team Organization Name Specialty Phone Email Start Date End [facility] 07/02/2025 [facility] 07[facility]01/2025
== END 2025-07-23 16:38 | disposition home or self-care (01) ==
LOC: HO.HWS 15:36
PROVIDERS: PCP Internal Medicine; Visit Provider Obstetrics & Gynecology
DX: N93.9 Abnormal uterine and vaginal bleeding, unspecified (principal); Z97.5 Presence of (intrauterine) contraceptive device; Z87.42 Personal history of other diseases of the female genital tract; Z32.02 Encounter for pregnancy test, result negative
CPT/HCPCS: 99203

== ENCOUNTER 2025-07-23 15:35 | Outpatient (REF) | payer OTHER, SELFPAY ==
[2025-07-24 04:44] LABS: CT PCR NOT DETECTED (Not Detect.); NG PCR NOT DETECTED (Not Detect.)
== END 2025-07-23 15:36 | disposition home or self-care (01) ==
LOC: HO.LNP 15:35
PROVIDERS: PCP Internal Medicine; Visit Provider Obstetrics & Gynecology
DX: N93.9 Abnormal uterine and vaginal bleeding, unspecified (principal); Z87.42 Personal history of other diseases of the female genital tract; Z97.5 Presence of (intrauterine) contraceptive device; Z32.02 Encounter for pregnancy test, result negative
CPT/HCPCS: 81025; 87491; 87591; 88175; 99202

== ENCOUNTER 2025-08-06 08:41 | Outpatient (AMB) | payer OTHER, SELFPAY ==
--- NOTE | 2025-08-06 09:11 | A.OFFVIS_ITS ---
Vital Signs 08/06/25 09:18 Height 5 ft 2 in Weight 169 lb BMI 30.9 BP 112/74 Intake Visit Reasons: Nexpla Nonremoval Allergies No Known Allergies Allergy (Verified 07/23/25 15:45) HPI Comments Details: Presenting for Nexplanon removal and discussion of different options of control COUNTS INCLUDE 234 BEDS AT THE [facility] Medical History History of abnormal cervical Pap smear Suicidal ideation MDD (major depressive disorder), recurrent episode, severe Surgical History No pertinent past surgical history Family History Mother Hypertension Father Hypertension Diabetes Social History Household Members: Spouse Housing: Apartment Do you presently have visiting nurse or other home services: No Alcohol intake: current Alcohol intake frequency: holidays/special occasions only Patient Tobacco Use Status: Never used Tobacco e-Cigarette/Vaping Use: Currently Using Second Hand Smoke Exposure: No service: Yes ([employer]) Current occupational status: employed and student Current occupation: Current occupational exposures/hazards: No Sexual orientation: Straight/Heterosexual Gender identity: Female Cognitive needs: No Hearing needs: No Vision needs: No Review of Systems Const All systems reviewed & are unremarkable except as noted in HPI and below Reports as per HPI and Reports no additional complaints GI Reports no additional complaints Reports no additional complaints Office Procedures Contraception Insert/Removal Details Details: Counseling/Consent: After discussing with the patient the risks of the procedure including bleeding, infection, scar tissue formation, , possible injury to blood vessels or nerves, chronic arm pain, blood transfusion, and irregular unpredictable bleeding Urine test done in the office was negative Preopdx: Requesting Nexplanon removal Op: Nexplanon Removal Post op dx: same EBL= 10 cc Procedure: After discussing with the patient the risks of the procedure including bleeding, infection, scar tissue formation, the patient signed the consent and agreed with the plan; all questions answered. The patient was then put in the dorsal supine position with Left arm in which Nexplanon is located exposed. Then the area was scrubbed with betadine. Nexplanon was located next by palpation and the end closest to the elbow was marked with a sterile marker. 5cc 1% Xylocaine was used to anesthetize the area at the site near the tip of Nexplanon. Next, a 3 mm incision in the longitudinal direction of the arm at the tip of the implant was made and the Nexplanon was pushed toward the incision until the tip was visible. The implant was grasped with a curved mosquito forceps and pulled out gently. Then incision was closed with steri-strips approximating the edges and an adhesive bandage was applied. A pressure bandage was applied with sterile gauze to minimize bruising. At the end explained to the patient that she is not covered with contraception anymore and recommended for her to use another contraceptive method. Discharge instructions: Patient was instructed to call if any of the following occurs :temperature above 100.4, pain at the side of the incision, redness, discharge or gapping, arm pain or bleeding. All questions answered patient verbalized understanding . This note was generated with a voice recognition program. Some errors may have been overlooked during the review of this note. Sometimes these errors may affect the content or meaning of a given sentence. 36543 - Removal Assessment & Plan Assessment & Plan (1) Nexplanon removal: Code(s): Z30.46 - Encounter for surveillance of implantable subdermal contraceptive Category: Medical Plan: UPT done in the office was negative. Nexplanon removed, see procedure note (2) Family planning: Code(s): Z30.09 - Encounter for other general counseling and advice on contraception Category: Social Hx Plan: Discussed with the patient the different options of control including control pills/Nuvaring, Depo Medroxy Progesterone Acetate, IUD ( levonorgestrel, Copper), sterilization. All the pros, cons, risks and benefits of each were discussed with the patient. The patient decided to go ahead with [facility] so a more detailed discussion re: control pills including mechanism of action, benefits (regular menses, less dysmenorrhea, less risk of ovarian can cer, ...), risks ( DVT, PE, Strokes, VA, increased breast ca, others). Instructions were given to use a back- up method for contraception x 1st 2 weeks, and to schedule a 3 months appointment for blood pressure check Medications: New desogestrel-ethinyl estradiol 0.15-0.03 mg (Apri) 1 tab PO DAILY 28 tabs 2RF 28 days Coding Level of Care Code Est Pt Level 3 (36046) Procedure Only Diagnoses Nexplanon removal Z30.46 Family planning Z30.09 CPT Codes Details - Contraception: 74423 - Removal ([id number])
[2025-08-06 09:18] VITALS: BP 112/74; BMI 30.9
== END 2025-08-06 09:43 | disposition home or self-care (01) ==
LOC: HO.HWS 08:42
PROVIDERS: PCP Internal Medicine; Visit Provider Obstetrics & Gynecology
DX: Z30.46 Encounter for surveillance of implantable subdermal contraceptive (principal); Z30.09 Encounter for other general counseling and advice on contraception; Z32.02 Encounter for pregnancy test, result negative
CPT/HCPCS: 11982; 99213

== ENCOUNTER → 2025-08-06 08:41 | Outpatient (BNVA) | payer OTHER, SELFPAY | PROVIDERS: PCP Internal Medicine; Visit Provider Obstetrics & Gynecology | DX: Z30.46 Encounter for surveillance of implantable subdermal contraceptive (principal); Z30.09 Encounter for other general counseling and advice on contraception; Z32.02 Encounter for pregnancy test, result negative; Z91.85 Personal history of military service | CPT/HCPCS: 11982; 81025; 99212 ==

== ENCOUNTER → 2025-09-16 23:44 | Outpatient (BNV) | payer OTHER, SELFPAY | PROVIDERS: Emergency Provider Emergency Medicine; Visit Provider Radiology Diagnostic Radiology | DX: M62.838 Other muscle spasm (principal); R22.0 Localized swelling, mass and lump, head; S09.90XA Unspecified injury of head, initial encounter | CPT/HCPCS: 70450; 70486; 72125 ==